=== PATIENT | male | born 1980 | race African-American/Black ===

== ENCOUNTER 2016-11-16 19:11 | Emergency (ER) | payer SELFPAY ==
--- NOTE | 2016-11-16 21:44 | ER Document Report ---
ED Medical Screen (RME) - General Chief Complaint: Abscess Stated Complaint: BUTTOCKS PAIN/POSSIBLE BOIL Notes: 35 yo male with boil to buttocks. noticed it yesterday. started draining today. + previous abscess. no fever. No significant PMHx. - Related Data Allergies/Adverse Reactions: No Known Allergies Allergy (Verified 05/14/12 21:12) Past Medical History Pulmonary Medical History: Reports: Hx Asthma - Immunizations Hx Diphtheria, Pertussis, Tetanus Vaccination: Yes Physical Exam - Vital signs Vitals: Temp Pulse Resp BP Pulse Ox 98.0 F 55 L 16 120/88 H 100 11/16/16 20:17 11/16/16 20:17 11/16/16 20:17 11/16/16 20:17 11/16/16 20:17 Course - Vital Signs Vital signs: Temp Pulse Resp BP Pulse Ox 98.0 F 55 L 16 120/88 H 100 11/16/16 20:17 11/16/16 20:17 11/16/16 20:17 11/16/16 20:17 11/16/16 20:17
--- NOTE | 2016-11-16 23:57 | ER Document Report ---
ED Skin Rash/Insect Bite/Abscs - General Chief Complaint: Abscess Stated Complaint: BUTTOCKS PAIN/POSSIBLE BOIL Mode of Arrival: Ambulatory Information source: Patient Notes: Patient is a 35-year-old male who presents to the ER today for possible abscess on the left buttocks that he noticed 2 days ago. Patient states he has a history of abscesses and has had to get them cut open before, unknown history of MRSA. He states that this one has been draining "a lot of" pus over the past 24 hours. He denies any fevers or chills. - Related Data Allergies/Adverse Reactions: No Known Allergies Allergy (Verified 05/14/12 21:12) Past Medical History - General Information source: Patient - Social History Smoking Status: Unknown if Ever Smoked Family History: Reviewed & Not Pertinent Pulmonary Medical History: Reports: Hx Asthma - Immunizations Hx Diphtheria, Pertussis, Tetanus Vaccination: Yes Review of Systems - Review of Systems Constitutional: No symptoms reported EENT: No symptoms reported Cardiovascular: No symptoms reported Respiratory: No symptoms reported Gastrointestinal: No symptoms reported Genitourinary: No symptoms reported Male Genitourinary: No symptoms reported Musculoskeletal: No symptoms reported Skin: See HPI Hematologic/Lymphatic: No symptoms reported Neurological/Psychological: No symptoms reported Physical Exam - Vital signs Vitals: Temp Pulse Resp BP Pulse Ox 98.0 F 55 L 16 120/88 H 100 11/16/16 20:17 11/16/16 20:17 11/16/16 20:17 11/16/16 20:17 11/16/16 20:17 - Notes Notes: PHYSICAL EXAMINATION: GENERAL: Sleeping, no acute distress. HEAD: Atraumatic, normocephalic. EYES: Pupils equal round and reactive to light, extraocular movements intact, sclera anicteric, conjunctiva are normal. NECK: Normal range of motion, supple without lymphadenopathy LUNGS: CTAB and equal. No wheezes rales or rhonchi. HEART: Regular rate and rhythm without murmurs EXTREMITIES: Normal range of motion, no pitting edema. No cyanosis. NEUROLOGICAL: Cranial nerves grossly intact. Normal sensory/motor exams. PSYCH: Normal mood, normal affect. SKIN: Warm, Dry, normal turgor, left buttock with 2 cm in diameter area of induration, open and draining purulent discharge, tender to palpation, slightly warm to the touch Course - Re-evaluation Re-evalutation: 11/17/16 00:04 Patient opted to try antibiotic as abscess is already open and draining. - Vital Signs Vital signs: Temp Pulse Resp BP Pulse Ox 97.8 F 60 18 118/79 100 11/17/16 00:02 11/17/16 00:02 11/17/16 00:02 11/17/16 00:02 11/17/16 00:02 Discharge - Discharge Clinical Impression: Abscess Condition: Stable Disposition: HOME, SELF-CARE Instructions: Trimethoprim-Sulfa ([facility]) Additional Instructions: Return immediately for any new or worsening symptoms. Follow up with primary care provider, call tomorrow to make followup appointment. Prescriptions: Sulfamethoxazole/Trimethoprim [Bactrim Ds Tablet] 1 each PO BID #20 tablet Forms: Return to Work
[2016-11-17] MEDS ORDERED: SULFAMETHOXAZOLE/TRIMETHOPRIM 800-160 MG TABLET PO ONE (00:01)
[2016-11-17 01:06] VITALS: BP 118/79
== END 2016-11-17 00:02 | disposition home or self-care (01) ==
LOC: ER 19:11
DX: L02.31 Cutaneous abscess of buttock (principal); Z86.14 Personal history of Methicillin resistant Staphylococcus aureus infection
CPT/HCPCS: 99282

== ENCOUNTER 2017-03-15 11:59 | Emergency (ER) | payer SELFPAY ==
[2017-03-15] MEDS ORDERED: ONDANSETRON 4 MG TAB.RAPDIS SL ONE ×2 (12:17→15:37)
[2017-03-15] MEDS ORDERED: LORAZEPAM 1 MG TABLET PO ONE ×2 (12:17→15:37)
--- NOTE | 2017-03-15 12:19 | ER Document Report ---
ED Substance Abuse / Acc. OD - General Chief Complaint: Drug Abuse Stated Complaint: DRUG WITHDRAW SYMPTOMS Time seen by provider: 12:17 Mode of Arrival: Ambulatory Information source: Patient TRAVEL OUTSIDE OF THE U.S. IN LAST 30 DAYS: No - HPI Patient complains to provider of: Drug abuse, Drug withdrawal Onset: Other - 2 days Onset/Duration: Persistent Quality of pain: Achy Severity: Moderate Pain Level: 3 Associated Symptoms: Fever/chills/sweaty, Nausea/vomiting Similar symptoms previously: Yes Recently seen / treated by doctor: No Notes: Patient is a 36-year-old male who presents to the emergency room requesting assistance with withdrawal symptoms related to heroin abuse, states he has been using 8-10 bags daily, snorting it, for the past 6 months, his last use was 2 days ago, he reports nausea, abdominal cramping, diaphoresis and chills as well as diffuse body aches, states he attempt to quit approximate one month ago on his own without any success, denies ever going to a formal rehabilitation/detox program - Related Data Allergies/Adverse Reactions: No Known Allergies Allergy (Verified 03/15/17 12:12) Past Medical History - General Information source: Patient - Social History Smoking Status: Current Every Day Smoker Drug Abuse: Heroin Family History: Reviewed & Not Pertinent Patient has suicidal ideation: No Patient has homicidal ideation: No Pulmonary Medical History: Reports: Hx Asthma Renal/ Medical History: Denies: Hx Peritoneal Dialysis - Immunizations Hx Diphtheria, Pertussis, Tetanus Vaccination: Yes Review of Systems - Review of Systems Constitutional: See HPI EENT: No symptoms reported Cardiovascular: No symptoms reported Respiratory: No symptoms reported Gastrointestinal: See HPI Genitourinary: No symptoms reported Male Genitourinary: No symptoms reported Musculoskeletal: No symptoms reported Skin: No symptoms reported Hematologic/Lymphatic: No symptoms reported Neurological/Psychological: See HPI -: Yes All other systems reviewed and negative Physical Exam - Vital signs Vitals: Temp Pulse Resp BP Pulse Ox 98.2 F 67 18 129/73 H 99 03/15/17 12:12 03/15/17 12:12 03/15/17 12:12 03/15/17 12:12 03/15/17 12:12 Interpretation: Normal - General General appearance: Appears well, Alert - HEENT Head: Normocephalic, Atraumatic Eyes: Normal Pupils: PERRL - Respiratory Respiratory status: No respiratory distress Chest status: Nontender Breath sounds: Normal Chest palpation: Normal - Cardiovascular Rhythm: Regular Heart sounds: Normal auscultation Murmur: No - Abdominal Inspection: Normal Distension: No distension Bowel sounds: Normal Tenderness: Nontender Organomegaly: No organomegaly - Back Back: Normal, Nontender - Extremities General upper extremity: Normal inspection, Nontender, Normal color, Normal ROM , Normal temperature General lower extremity: Normal inspection, Nontender, Normal color, Normal ROM , Normal temperature, Normal weight bearing. No: Alanna's sign - Neurological Neuro grossly intact: Yes Cognition: Normal Orientation: AAOx4 [place] Coma Scale Eye Opening: Spontaneous Diaz Coma Scale Verbal: Oriented Diaz Coma Scale Motor: Obeys Commands [place] Coma Scale Total: 15 Speech: Normal Motor strength normal: LUE, RUE, LLE, RLE Sensory: Normal - Psychological Associated symptoms: Normal affect, Normal mood - Skin Skin Temperature: Warm Skin Moisture: Dry Skin Color: Normal Course - Re-evaluation Re-evalutation: 03/15/17 18:21 Patient was evaluated by mental health screener, who called [facility] who will follow-up with patient to attempt to get him into detox treatment, patient was given a prescription for a small amount of benzodiazepine to help with symptoms of withdrawal, advised to follow-up with [facility], or return if symptoms worsen, patient acknowledges understanding and agreement with this plan - Vital Signs Vital signs: Temp Pulse Resp BP Pulse Ox 98.6 F 54 L 16 110/67 100 03/15/17 16:18 03/15/17 16:18 03/15/17 16:18 03/15/17 16:18 03/15/17 16:18 - Laboratory Result Diagrams: 03/15/17 12:25 03/15/17 12:25 Laboratory results interpreted by me: 03/15/17 12:25 Salicylates < 1.0 L Acetaminophen < 10 L - EKG Interpretation by [facility] EKG shows normal: Sinus rhythm Rate: Bradycardia Discharge - Discharge Clinical Impression: Heroin abuse Condition: Stable Disposition: HOME, SELF-CARE Instructions: Narcotic Abuse ([facility]) Additional Instructions: Return to [facility] for further assistance with detox/rehabilitation treatment. Return to the emergency room immediately if symptoms worsen or any additional concerns. Prescriptions: Lorazepam [Ativan 0.5 mg Tablet] 0.5 mg PO Q4 PRN #14 tab PRN Reason:
[2017-03-15 12:45] LABS: ABSOLUTE BASOPHILS # (AUTO) 0.1 10^3/uL (0.0-0.2); ABSOLUTE EOSINOPHILS # (AUTO) 0.1 10^3/uL (0.0-0.6); ABSOLUTE LYMPHOCYTES (AUTO) 2.1 10^3/uL (0.5-4.7); ABSOLUTE MONOCYTES (AUTO) 0.8 10^3/uL (0.1-1.4); ABSOLUTE NEUT (AUTO) 5.1 10^3/uL (1.7-8.2); BASOPHILS % (AUTO) 0.7 % (0-2); EOSINOPHILS % (AUTO) 0.9 % (0-6); HEMATOCRIT 44.4 % (37.9-51.0); HEMOGLOBIN 15.2 g/dL (13.5-17.0); HGB HCT DIFFERENCE 1.2; LYMPHOCYTES % (AUTO) 26.3 % (13-45); MEAN CORPUSCULAR HEMOGLOBIN 31.3 pg (27.0-33.4); MEAN CORPUSCULAR HGB CONC 34.2 g/dL (32.0-36.0); MEAN CORPUSCULAR VOLUME 92 fl (80-97); MONOCYTES % (AUTO) 9.5 % (3-13); RED BLOOD COUNT 4.85 10^6/uL (4.35-5.55); RED CELL DISTRIBUTION WIDTH 13.5 % (11.5-14.0); SEGMENTED NEUTROPHILS % (AUTO) 62.6 % (42-78); WHITE BLOOD COUNT 8.2 10^3/uL (4.0-10.5)
[2017-03-15 13:03] LABS: APPEARANCE,URINE SLIGHTLY-CLOUDY; BILIRUBIN,URINE NEGATIVE (NEGATIVE); GLUCOSE, URINE NEGATIVE (NEGATIVE); KETONES,URINE NEGATIVE (NEGATIVE); LEUKOCYTE ESTERASE,URINE NEGATIVE (NEGATIVE); NITRITE,URINE NEGATIVE (NEGATIVE); PROTEIN,URINE NEGATIVE (NEGATIVE); URINE SPECIFIC GRAVITY 1.011; UROBILINOGEN,URINE NEGATIVE mg/dL (<2.0)
[2017-03-15 13:04] LABS: ALANINE AMINOTRANSFERASE 41 U/L (21-72); ALBUMIN 4.4 g/dL (3.5-5.0); ALKALINE PHOSPHATASE 83 U/L (38-126); ANION GAP 13 (5-19); ASPARTATE AMINO TRANSFERASE 36 U/L (17-59); BILIRUBIN,DIRECT 0.1 mg/dL (0.0-0.4); BILIRUBIN,TOTAL 0.8 mg/dL (0.2-1.3); BLOOD UREA NITROGEN 11 mg/dL (7-20); CALCIUM 10.2 mg/dL (8.4-10.2); CARBON DIOXIDE 28 mmol/L (22-30); CHLORIDE 103 mmol/L (98-107); CREATININE RESULT 0.96 mg/dL (0.52-1.25); GLUCOSE 104 mg/dL (75-110); POTASSIUM 4.3 mmol/L (3.6-5.0); SODIUM 143.8 mmol/L (137-145); TOTAL PROTEIN 7.8 g/dL (6.3-8.2)
[2017-03-15 13:04] LABS: URINE BARBITURATES SCREEN NEGATIVE; URINE METHADONE SCREEN NEGATIVE; URINE OPIATES LOW UNCONFIRMED POSITIVE; URINE PHENCYCLIDINE SCREEN NEGATIVE
[2017-03-15 13:05] LABS: ALCOHOL < 10 mg/dL (NONE DETECTED)
--- NOTE | 2017-03-15 16:18 | PSYCHOLOGICAL NOTE ---
Psych Note - Psych Note Psych Note: Patient is a 36 year old male who presents with a family member requesting assistance with detox. Patient reportedly used close to 10 bags of heroin/daily and presented to [facility] today requesting assistance seeking a detox bed. Patient states he was instructed to present to the ED and was told the hospital has been known to provide a 4-5 day program. Discussed with patient detox programs, which do not include [facility]. Discussed with patient that [facility] can assist with this, and he can be provided copies of all of his lab work and EKG. Offered to assist patient by calling [facility] to confirm that they do plan to continue to assist him in seeking detox. Patient denied SI/HI. Patient discussed attempting to discontinue heroin abuse without assistance, but was unsuccessful. Patient reportedly uses multiple methods of use. Patient reports he is agreeable to call and follow up. Gina Ovalle: states once the patient has his lab work and EKG, he can call their mobile crisis numbers and will be assisted in finding a detox bed. Patient is A&O. Mood is euthymic with congruent affect. Patient denies suicidal /homicidal ideations, intent, plan, or means. Patient denies A/V H; delusions not noted. Thought processes were organized. Conversational speech was low for prosody. Intellectual abilities were estimated within average range. Attention and focus were fair. Insight, judgment, and impulse control were fair aeb seeking professional assistance. Unspecified Opioid Use Disorder Patient is psychiatrically cleared and recommended for discharge to follow up with [facility] to assist in detox placement. Provided psychoeducation regarding detox processes here in [place], which are largely voluntary. Patient does not meet criteria for IVC as he denies SI/HI and denies abusing drugs with the goal of . Patient was provided a list of community resources to assist him further. I consulted with Dr. Mcghee in regards to the care and management of this patient. ED MD is in agreement with disposition and recommendations.
[2017-03-15 16:23] VITALS: BP 110/67
--- NOTE | 2017-03-15 19:14 | EKG REPORT ---
SEVERITY:- ABNORMAL ECG - SINUS RHYTHM ST ELEVATION NORMAL VARIANT. : Confirmed by: Rom Rowland MD 15-Mar-2017 19:14:02
== END 2017-03-15 16:23 | disposition home or self-care (01) ==
LOC: ER 11:59
DX: F11.10 Opioid abuse, uncomplicated (principal); R10.9 Unspecified abdominal pain; R61 Generalized hyperhidrosis; R68.83 Chills (without fever); R11.2 Nausea with vomiting, unspecified; R00.1 Bradycardia, unspecified; F17.200 Nicotine dependence, unspecified, uncomplicated; J45.909 Unspecified asthma, uncomplicated
CPT/HCPCS: 93005; 99285; 36415; 80307 ×4; 85025; 80053; 81001; 93010; S0119

== ENCOUNTER 2017-03-18 10:00 | Emergency (ER) | payer SELFPAY ==
--- NOTE | 2017-03-18 10:30 | ER Document Report ---
HPI - HPI Patient complains to provider of: punched a wall Onset: Yesterday Onset/Duration: Sudden Quality of pain: Throbbing Pain Level: 4 Context: 36-year-old male punched a wall yesterday and is complaining of pain in the right lateral aspect of the hand over the fifth MCP joint. No previous fracture. Associated Symptoms: None Exacerbated by: Movement Relieved by: Denies Similar symptoms previously: No Recently seen / treated by doctor: No - ROS ROS below otherwise negative: Yes Systems Reviewed and Negative: Yes All other systems reviewed and negative - DERM Skin Color: Normal Past Medical History - General Information source: Patient - Social History Smoking Status: Current Every Day Smoker Frequency of alcohol use: Heavy Drug Abuse: None Lives with: Family Family History: Reviewed & Not Pertinent Patient has suicidal ideation: No Patient has homicidal ideation: No Pulmonary Medical History: Reports: Hx Asthma Renal/ Medical History: Denies: Hx Peritoneal Dialysis Surgical Hx: Negative - Immunizations Hx Diphtheria, Pertussis, Tetanus Vaccination: Yes Vertical Provider Document - CONSTITUTIONAL Agree With Documented VS: Yes Exam Limitations: No Limitations - INFECTION CONTROL TRAVEL OUTSIDE OF THE U.S. IN LAST 30 DAYS: No - HEENT HEENT: Normocephalic - NECK Neck: Supple - RESPIRATORY O2 Sat by Pulse Oximetry: 98 - MUSCULOSKELETAL/EXTREMETIES Musculoskeletal/Extremeties: MAEW, FROM, Tender, Edema, Eccymosis - Fifth right MCP joint - NEURO Level of Consciousness: Awake, Alert, Appropriate Motor/Sensory: No Motor Deficit, No Sensory Deficit Notes: No rotational deviation - DERM Integumentary: Warm, Dry, No Rash Course - Re-evaluation Re-evalutation: 03/18/17 10:33 Patient does not want any Motrin offered further pain - Vital Signs Vital signs: Temp Pulse Resp BP Pulse Ox 98.5 F 83 18 126/72 H 98 03/18/17 10:06 03/18/17 10:06 03/18/17 10:06 03/18/17 10:06 03/18/17 10:06 Procedures - Immobilization Right Arm Time completed: 10:57 Pre-Proc Neuro Vasc Exam: Normal Immobilizer type: Ulnar Performed by: PCT Post-Proc Neuro Vasc Exam: Normal Alignment checked and good: Yes Discharge - Discharge Clinical Impression: distal right fifth metacarpal fracture Condition: Good Disposition: HOME, SELF-CARE Instructions: Fractured Fifth Metacarpal ([facility]), Temporary Sling ([facility]), Splint Precautions ([facility]), Splint Pending Casting ([facility]) Additional Instructions: See the orthopedic doctor next week call Monday for appointment Return to the emergency room any concerns Please complete the patient satisfaction survey if you get one, and return it.. If you do not receive a survey, then you can go to the [facility] website, [email or web address] and place your comments about your very good care. Thank you very much. It was a pleasure being your medical provider today. Forms: Return to Work Referrals: FUENTES CAMPOS MD [ACTIVE STAFF] - 03/20/17
[2017-03-18 11:24] VITALS: BP 118/72
== END 2017-03-18 11:24 | disposition home or self-care (01) ==
LOC: ER 10:00
PROC: 2W3CX1Z Immobilization of Right Lower Arm using Splint (ICD-10-PCS; principal; 2017-03-18)
DX: S62.396A Other fracture of fifth metacarpal bone, right hand, initial encounter for closed fracture (principal); W22.01XA Walked into wall, initial encounter; F17.200 Nicotine dependence, unspecified, uncomplicated; J45.909 Unspecified asthma, uncomplicated
CPT/HCPCS: 99283

== ENCOUNTER 2018-03-13 00:19 | Inpatient (IN) | payer SELFPAY ==
[2018-03-13] MEDS ORDERED: CLINDAMYCIN 600 MG/D5W RTU 600 MG/50 ML RTUPB IV ONE (01:02)
[2018-03-13] MEDS ORDERED: KETOROLAC TROMETHAMINE INJ/PF 30 MG/1 ML SDV IV ONE (01:02)
--- NOTE | 2018-03-13 01:05 | ER Document Report ---
ED Medical Screen (RME) - General Chief Complaint: Arm Problem Stated Complaint: ARM SWELLING Time Seen by Provider: 03/13/18 01:01 Mode of Arrival: Ambulatory Information source: Patient TRAVEL OUTSIDE OF THE [place] IN LAST 30 DAYS: No - HPI Patient complains to provider of: Right hand swelling Notes: 03/13/18 01:03 Patient is here with complaints of right hand swelling, redness, pain. States this is been present for about 2 days now. He does report that he shot heroin into his hand 1 day prior to this. Since that time he had progressively worsening redness and swelling with pain to the right hand wrist midforearm. He denies any numbness or tingling. He has decreased range of motion of the wrist and hand secondary to pain and swelling. He denies fever. He denies known HIV, diabetes or immunosuppression. No fevers. Physical exam: No acute distress. Redness and swelling to the right hand and wrist. This area is warm to the touch. Tenderness to palpation. Normal pulse. Limited range of motion of the wrist and hand. Normal cap refill and sensation distally. Compartments soft. Plan: CBC, CMP, sed rate, CRP, blood cultures, IV, Toradol, clindamycin, x-ray of the hand. An initial examination was made on the patient as part of the triage process, and it was determined a more comprehensive evaluation was necessary. Initial labs were ordered and patient was transferred to another provider in the ED who assumed care and finished evaluation and plan. - Related Data Allergies/Adverse Reactions: No Known Allergies Allergy (Verified 03/18/17 10:32) Past Medical History Pulmonary Medical History: Reports: Hx Asthma Renal/ Medical History: Denies: Hx Peritoneal Dialysis - Immunizations Hx Diphtheria, Pertussis, Tetanus Vaccination: Yes Physical Exam - Vital signs Vitals: Temp Pulse Resp BP Pulse Ox 99.6 F 75 20 128/77 H 98 03/13/18 00:26 03/13/18 00:26 03/13/18 00:26 03/13/18 00:03/13/18 00:26 Course - Vital Signs Vital signs: Temp Pulse Resp BP Pulse Ox 99.6 F 75 20 128/77 H 98 03/13/18 00:26 03/13/18 00:26 03/13/18 00:26 03/13/18 00:26 03/13/18 00:26
[2018-03-13] MEDS ORDERED: VANCOMYCIN HCL INJ 1000 MG VIAL IV ONE (02:21)
--- NOTE | 2018-03-13 02:35 | RADIOLOGY REPORT (SQ) ---
EXAM DESCRIPTION: HAND RIGHT 3 VIEWS CLINICAL HISTORY: IVD USE. HAND INJECTION. SWELLING/RED/PAIN COMPARISON: None. FINDINGS: 3 views of the right hand. Remote fifth metacarpal fracture. No acute fracture identified. Edema of the hyperthenar eminence. IMPRESSION: 1. No acute fracture.
[2018-03-13 02:55] LABS: ABSOLUTE BASOPHILS # (AUTO) 0.1 10^3/uL (0.0-0.2); ABSOLUTE EOSINOPHILS # (AUTO) 0.1 10^3/uL (0.0-0.6); ABSOLUTE LYMPHOCYTES (AUTO) 2.4 10^3/uL (0.5-4.7); ABSOLUTE MONOCYTES (AUTO) 1.9 10^3/uL (0.1-1.4); ABSOLUTE NEUT (AUTO) 12.2 10^3/uL (1.7-8.2); BASOPHILS % (AUTO) 0.6 % (0-2); EOSINOPHILS % (AUTO) 0.4 % (0-6); HEMATOCRIT 41.4 % (37.9-51.0); HEMOGLOBIN 13.5 g/dL (13.5-17.0); LYMPHOCYTES % (AUTO) 14.5 % (13-45); MEAN CORPUSCULAR HEMOGLOBIN 30.4 pg (27.0-33.4); MEAN CORPUSCULAR HGB CONC 32.7 g/dL (32.0-36.0); MEAN CORPUSCULAR VOLUME 93 fl (80-97); MONOCYTES % (AUTO) 11.4 % (3-13); PLATELET COUNT 398 10^3/uL (150-450); RED BLOOD COUNT 4.45 10^6/uL (4.35-5.55); RED CELL DISTRIBUTION WIDTH 13.5 % (11.5-14.0); SEGMENTED NEUTROPHILS % (AUTO) 73.1 % (42-78); TOTAL CELLS COUNTED % (AUTO) 100 %; WHITE BLOOD COUNT 16.7 10^3/uL (4.0-10.5)
[2018-03-13 03:30] LABS: ERYTHROCYTE SEDIMENTATION RATE 65 mm/hr (0-15)
[2018-03-13 03:59] LABS: ALANINE AMINOTRANSFERASE 94 U/L (21-72); ALBUMIN 3.7 g/dL (3.5-5.0); ALKALINE PHOSPHATASE 127 U/L (38-126); ANION GAP 13 (5-19); ASPARTATE AMINO TRANSFERASE 82 U/L (17-59); BILIRUBIN,DIRECT 0.3 mg/dL (0.0-0.4); BILIRUBIN,TOTAL 0.4 mg/dL (0.2-1.3); BLOOD UREA NITROGEN 7 mg/dL (7-20); C-REACTIVE PROTEIN 85.9 mg/L (<10.0); CALCIUM 9.6 mg/dL (8.4-10.2); CARBON DIOXIDE 26 mmol/L (22-30); CHLORIDE 106 mmol/L (98-107); GLUCOSE 114 mg/dL (75-110); POTASSIUM 3.9 mmol/L (3.6-5.0); SODIUM 144.9 mmol/L (137-145); TOTAL PROTEIN 7.1 g/dL (6.3-8.2)
--- NOTE | 2018-03-13 04:41 | ER Document Report ---
ED Extremity Problem, Upper - General Mode of Arrival: Ambulatory TRAVEL OUTSIDE OF THE U.S. IN LAST 30 DAYS: No <MARCAI FONSECA - Last Filed: 03/13/18 05:16> <JONAH PAIGE - Last Filed: 03/13/18 05:36> - General Chief Complaint: Arm Problem Stated Complaint: ARM SWELLING Time Seen by Provider: 03/13/18 01:01 Notes: Patient is a 37-year-old male who presents to the emergency department with complaint of right hand swelling and pain x2 days. Patient reports that 3 days ago he was shooting up heroin. Patient states he is right-hand dominant. Patient states that the hand is painful, from the fingers of into the wrist and has limited range of motion. Patient denies any past medical history or surgical history. Patient reports that he uses heroin and cocaine. (MARCIA FONSECA) - Related Data Allergies/Adverse Reactions: No Known Allergies Allergy (Verified 03/18/17 10:32) Past Medical History - General Information source: Patient - Social History Smoking Status: Current Every Day Smoker Frequency of alcohol use: Occasional Drug Abuse: Cocaine, Heroin Family History: Reviewed & Not Pertinent Patient has suicidal ideation: No Patient has homicidal ideation: No Pulmonary Medical History: Reports: Hx Asthma Renal/ Medical History: Denies: Hx Peritoneal Dialysis Past Surgical History: Reports: None - Immunizations Hx Diphtheria, Pertussis, Tetanus Vaccination: Yes <MARCIA FONSECA - Last Filed: 03/13/18 05:16> Review of Systems - Review of Systems Constitutional: No symptoms reported EENT: No symptoms reported Cardiovascular: No symptoms reported Respiratory: No symptoms reported Gastrointestinal: No symptoms reported Genitourinary: No symptoms reported Male Genitourinary: No symptoms reported Musculoskeletal: See HPI Skin: See HPI Hematologic/Lymphatic: No symptoms reported Neurological/Psychological: No symptoms reported <MARCIA FONSECA - Last Filed: 03/13/18 05:16> Physical Exam <MARCIA FONSECA - Last Filed: 03/13/18 05:16> <JONAH PAIGE - Last Filed: 03/13/18 05:36> - Vital signs Vitals: Temp Pulse Resp BP Pulse Ox 99.6 F 75 20 128/77 H 98 03/13/18 00:26 03/13/18 00:26 03/13/18 00:26 03/13/18 00:26 03/13/18 00:26 - Notes Notes: PHYSICAL EXAMINATION: GENERAL: Well-appearing, well-nourished and in no acute distress. HEAD: Atraumatic, normocephalic. EYES: Pupils equal round and reactive to light, extraocular movements intact, conjunctiva are normal. ENT: Nares patent. Moist mucous membranes. NECK: Normal range of motion, supple without lymphadenopathy LUNGS: Breath sounds clear to auscultation bilaterally and equal. No wheezes rales or rhonchi. HEART: Regular rate and rhythm without murmurs ABDOMEN: Soft, nontender, nondistended abdomen. No guarding, no rebound. No masses appreciated. Musculoskeletal: Normal range of motion, no pitting or edema. No cyanosis. NEUROLOGICAL: Cranial nerves grossly intact. Normal speech, normal gait. Normal sensory, motor exams PSYCH: Normal mood, normal affect. SKIN: Erythema warmth and swelling to right hand from fingertips into wrist. Limited ROM. Radial pulse present. (MARCIA FONSECA) Course - Laboratory Result Diagrams: 03/13/18 02:30 03/13/18 03:14 <MARCIA FONSECA - Last Filed: 03/13/18 05:16> - Laboratory Result Diagrams: 03/13/18 02:30 03/13/18 03:14 <JONAH PAIGE - Last Filed: 03/13/18 05:36> - Re-evaluation Re-evalutation: Patient's right hand is erythematous, warm to touch, and swollen from tips of his digits into his wrist. Pulses are present. There is a significant limitation of patient's range of motion. Patient does have sensation distal to injection sites. Patient reports that there is at least 3 injection sites to the dorsal surface of his hand. Patient has elevated WBC 16.7, ESR 65 and c- reactive protein 85.9. X-ray shows no foreign body. Will start patient on vancomycin, pain medication and nausea medication. Patient is afebrile and is not tachycardic. Consulted emergency attending, Dr. Paige, who agrees that patient needs to be admitted. 03/13/18 04:[address] Birmingham, orthopedic carton forming machine adjuster. by requesting medicine to evaluate patient and admit and he will consult if surgical intervention is necessary. 03/13/2018 04:[address] Evans, hospitalist. Dr. Evans states that he is concerned about this patient experiencing complications, and states that he will not admit without orthopedics evaluating patient. 03/13/2018 04:[address] Birminghma, orthopedic on-call who states that he is not admitting patient unless there is an proof of an abscess that needs surgical intervention. 03/13/2018 04:45 Spoke with emergency room attending, Dr. Paige who advises that a call she will be placed to the field administrator on-call at this point. (MARCIA FONSECA) 03/13/18 05:34 I reevaluated this patient as well. Patient is a large amount of swelling to the dorsum of the hand consistent with a serious hand infection which could potentially be an abscess as well. Patient's posterior hand is tight to touch but not rockhard. He is not yet compartment syndrome. Hand compartment syndromes are rare but can occur. He is not yet at that point. Marcia Fonseca, nurse practitioner, has been attempting to the patient admitted. I myself have now spoken with Dr. Birmingham informed him of our concerns Dr. Birmingham no agrees to come see the patient. Dictation of this chart was performed using voice recognition software; therefore, there may be some unintended grammatical errors. (JONAH PAIGE) - Vital Signs Vital signs: Temp Pulse Resp BP Pulse Ox 99.6 F 75 20 128/77 H 98 03/13/18 00:26 03/13/18 00:26 03/13/18 00:26 03/13/18 00:26 03/13/18 00:26 - Laboratory Laboratory results interpreted by me: 03/13/18 03/13/18 02:30 03:14 WBC 16.7 H Absolute Neutrophils 12.2 H Absolute Monocytes 1.9 H ESR 65 H Glucose 114 H AST 82 H ALT 94 H Alkaline Phosphatase 127 H C-Reactive Protein 85.9 H
[2018-03-13] MEDS ORDERED: HYDROMORPHONE HCL INJ/PF 2 MG/ML AMPULE IV ONE (05:04)
--- NOTE | 2018-03-13 07:11 | PDOC CONSULTATION ---
Consultation Consult Date: 03/13/18 Consult reason:: Right hand cellulitis History of Present Illness Patient complains of: Right hand swelling and pain History of Present Illness: ENRIQUETA GREY is a 37 year old male -[place] male who 2 days ago was admits to doing IV drugs. Patient states he started developing swelling and pain and came to ER for regulation. Denies any numbness or tingling or paresthesias. Denies any fevers or chills or other complaints. Complains of hand and thumb swelling. Has 2 visible breaks in the wrist and base of the thumb. Denies any prior surgical procedures to the right hand or thumb. Denies any previous injury. Past Medical History Pulmonary Medical History: Reports: Asthma Past Surgical History Past Surgical History: Reports: None Social History Smoking Status: Current Every Day Smoker Family History Family History: Reviewed & Not Pertinent Parental Family History Reviewed: No Children Family History Reviewed: No Sibling(s) Family History Reviewed.: No Medication/Allergy Home Medications: No Home Medications 1 05/14/12 Hydrocodone Bit/Acetaminophen [Vicodin 5-500 mg Tablet] 1 - 2 tab PO ASDIR PRN # 15 tablet 06/22/12 Sulfamethoxazole/Trimethoprim [Bactrim Ds Tablet] 1 each PO BID #20 tablet 11/17 Lorazepam [Ativan 0.5 mg Tablet] 0.5 mg PO Q4 PRN #14 tab 03/15/17 Allergies/Adverse Reactions: No Known Allergies Allergy (Verified 03/18/17 10:32) Review of Systems All systems: reviewed and no additional remarkable complaints except as stated Physical Exam Vital Signs: Temp Pulse Resp BP Pulse Ox 37.2 C 63 16 112/70 99 03/13/18 05:40 03/13/18 05:40 03/13/18 05:40 03/13/18 05:40 03/13/18 05:40 Intake & Output 03/11/18 03/12/18 03/13/18 06:59 06:59 06:59 Weight 89.8 kg General appearance: PRESENT: no acute distress Head exam: PRESENT: atraumatic Eye exam: PRESENT: EOMI Respiratory exam: PRESENT: symmetrical, unlabored. ABSENT: accessory muscle use , tachypnea Pulses: PRESENT: normal radial pulses Vascular exam: PRESENT: normal capillary refill Front of Hands Image: 1 - Thenar swelling and erythema as well as base of the thumb swelling and erythema. Distal to the IP joint patient has no swelling and good capillary refill and able to flex and extend the IP joint. There is no pinpoint tenderness just global tenderness of the thenar and dorsal aspect of the base of the thumb. No fluctuance palpated. No streaking lymphangitis. Able to flex and extend all 5 digits at the MCP PIP and DIP joints. Most of the pain is with the thumb with extension. And tenderness over the puncture site from the IV drug use. Neurological exam: PRESENT: alert, awake, oriented to person, oriented to place , oriented to time, oriented to situation Results Laboratory Results: 03/13/18 02:30 03/13/18 03:14 03/13/18 03/13/18 03/13/18 02:30 02:30 03:14 WBC 16.7 H RBC 4.45 Hgb 13.5 Hct 41.4 MCV 93 MCH 30.4 MCHC 32.7 RDW 13.5 Plt Count 398 Seg Neutrophils % 73.1 Lymphocytes % 14.5 Monocytes % 11.4 Eosinophils % 0.4 Basophils % 0.6 Absolute Neutrophils 12.2 H Absolute Lymphocytes 2.4 Absolute Monocytes 1.9 H Absolute Eosinophils 0.1 Absolute Basophils 0.1 Sodium Cancelled 144.9 Potassium Cancelled 3.9 Chloride Cancelled 106 Carbon Dioxide Cancelled 26 Anion Gap Cancelled 13 BUN Cancelled 7 Creatinine Cancelled 1.03 Est GFR ( Amer) Cancelled > 60 Est GFR (Non-Af Amer) Cancelled > 60 Glucose Cancelled 114 H Calcium Cancelled 9.6 Total Bilirubin Cancelled 0.4 AST Cancelled 82 H ALT Cancelled 94 H Alkaline Phosphatase Cancelled 127 H C-Reactive Protein Cancelled 85.9 H Total Protein Cancelled 7.1 Albumin Cancelled 3.7 Impressions: Hand X-Ray 03/13/18 01:02 IMPRESSION: 1. No acute fracture.
[2018-03-13] MEDS ORDERED: IPRATROPIUM/ALBUTEROL 0.5-2.5 MG/3 ML AMPUL NEB PRN (07:26)
[2018-03-13] MEDS ORDERED: ONDANSETRON HCL INJ/PF 4 MG/2 ML SDV IV PRN (07:26)
[2018-03-13] MEDS ORDERED: HYDRALAZINE HCL INJ/PF 20 MG/1 ML SDV IV PRN (07:26)
[2018-03-13] MEDS ORDERED: MAGNESIUM HYDROXIDE SUSP 30 ML UDCUP PO PRN (07:26)
[2018-03-13] MEDS ORDERED: MAG HYDROX/AL HYDROX/SIMETH SUSP 30 ML UDCUP PO PRN (07:26)
[2018-03-13] MEDS ORDERED: ACETAMINOPHEN 325 MG TABLET PO PRN (07:26)
[2018-03-13] MEDS ORDERED: VANCOMYCIN HCL 0 MG in DEXTROSE 5%-WATER 250 ML IV NR (07:30)
--- NOTE | 2018-03-13 07:37 | PDOC H&P ---
History of Present Illness Patient complains of: Right hand pain and swelling History of Present Illness: ENRIQUETA GREY is a 37 year old male with a history of polysubstance IV drug abuse. 48 hours of right hand pain and swelling following IV drug use in the region. Patient denies previous episode, chest pain palpitations shortness of breath. In the emergency room is found to have leukocytosis marketed swelling of the hand increased pain with clenching of the first, no lymphangitic spread. He is evaluated by orthopedic surgery, receives IV clindamycin and vancomycin. He is referred to the hospitalist for admission. Past Medical History Pulmonary Medical History: Reports: Asthma Psychiatric Medical History: Reports: Substance Abuse Past Surgical History Past Surgical History: Reports: None Social History Information Source: Patient Smoking Status: Current Every Day Smoker Hx Recreational Drug Use: Yes Drugs: Cocaine, Heroin - Advance Directive Resuscitation Status: Full Code Family History Family History: COPD Parental Family History Reviewed: Yes Children Family History Reviewed: Yes Sibling(s) Family History Reviewed.: Yes Medication/Allergy Home Medications: No Home Medications 1 05/14/12 Hydrocodone Bit/Acetaminophen [Vicodin 5-500 mg Tablet] 1 - 2 tab PO ASDIR PRN # 15 tablet 06/22/12 Sulfamethoxazole/Trimethoprim [Bactrim Ds Tablet] 1 each PO BID #20 tablet 11/17 Lorazepam [Ativan 0.5 mg Tablet] 0.5 mg PO Q4 PRN #14 tab 03/15/17 Allergies/Adverse Reactions: No Known Allergies Allergy (Verified 03/18/17 10:32) Review of Systems Constitutional: ABSENT: chills, fever(s), headache(s), weight gain, weight loss Eyes: ABSENT: visual disturbances Ears: ABSENT: hearing changes Cardiovascular: ABSENT: chest pain, dyspnea on exertion, edema, orthropnea, palpitations Respiratory: ABSENT: cough, hemoptysis Gastrointestinal: ABSENT: abdominal pain, constipation, diarrhea, hematemesis, hematochezia, nausea, vomiting Genitourinary: ABSENT: dysuria, hematuria Musculoskeletal: ABSENT: joint swelling Integumentary: ABSENT: rash, wounds Neurological: ABSENT: abnormal gait, abnormal speech, confusion, dizziness, focal weakness, syncope Psychiatric: ABSENT: anxiety, depression, homidical ideation, suicidal ideation Endocrine: ABSENT: cold intolerance, heat intolerance, polydipsia, polyuria Hematologic/Lymphatic: ABSENT: easy bleeding, easy bruising Physical Exam Vital Signs: Temp Pulse Resp BP Pulse Ox 98.9 F 63 16 112/70 99 03/13/18 05:40 03/13/18 05:40 03/13/18 05:40 03/13/18 05:40 03/13/18 05:40 Intake & Output 03/11/18 03/12/18 03/13/18 11:59 11:59 11:59 Weight 89.8 kg General appearance: PRESENT: cooperative, disheveled, mild distress, well- developed, well-nourished Head exam: PRESENT: atraumatic, normocephalic Eye exam: PRESENT: conjunctiva pink, EOMI, PERRLA. ABSENT: scleral icterus Ear exam: PRESENT: normal external ear exam Mouth exam: PRESENT: moist, tongue midline Neck exam: ABSENT: carotid bruit, JVD, lymphadenopathy, thyromegaly Respiratory exam: PRESENT: clear to auscultation marian. ABSENT: rales, rhonchi, wheezes Cardiovascular exam: PRESENT: RRR. ABSENT: diastolic murmur, rubs, systolic murmur Pulses: PRESENT: normal dorsalis pedis pul Vascular exam: PRESENT: normal capillary refill GI/Abdominal exam: PRESENT: normal bowel sounds, soft. ABSENT: distended, guarding, mass, organolmegaly, rebound, tenderness Rectal exam: PRESENT: deferred Extremities exam: PRESENT: full ROM, other - Right hand edema erythema and pain , no fluctuance or open lesion. ABSENT: calf tenderness, clubbing, pedal edema Neurological exam: PRESENT: alert, awake, oriented to person, oriented to place , oriented to time, oriented to situation, CN II-XII grossly intact. ABSENT: motor sensory deficit Psychiatric exam: PRESENT: appropriate affect, normal mood. ABSENT: homicidal ideation, suicidal ideation Skin exam: PRESENT: dry, intact, warm. ABSENT: cyanosis, rash Results Laboratory Results: 03/13/18 02:30 03/13/18 03:14 03/13/18 03/13/18 03/13/18 02:30 02:30 03:14 WBC 16.7 H RBC 4.45 Hgb 13.5 Hct 41.4 MCV 93 MCH 30.4 MCHC 32.7 RDW 13.5 Plt Count 398 Seg Neutrophils % 73.1 Lymphocytes % 14.5 Monocytes % 11.4 Eosinophils % 0.4 Basophils % 0.6 Absolute Neutrophils 12.2 H Absolute Lymphocytes 2.4 Absolute Monocytes 1.9 H Absolute Eosinophils 0.1 Absolute Basophils 0.1 Sodium Cancelled 144.9 Potassium Cancelled 3.9 Chloride Cancelled 106 Carbon Dioxide Cancelled 26 Anion Gap Cancelled 13 BUN Cancelled 7 Creatinine Cancelled 1.03 Est GFR ( Amer) Cancelled > 60 Est GFR (Non-Af Amer) Cancelled > 60 Glucose Cancelled 114 H Calcium Cancelled 9.6 Total Bilirubin Cancelled 0.4 AST Cancelled 82 H ALT Cancelled 94 H Alkaline Phosphatase Cancelled 127 H C-Reactive Protein Cancelled 85.9 H Total Protein Cancelled 7.1 Albumin Cancelled 3.7 Impressions: Hand X-Ray 03/13/18 01:02 IMPRESSION: 1. No acute fracture. Assessment & Plan - Diagnosis (1) Cellulitis of hand, right Is this a current diagnosis for this admission?: Yes Plan: Mid floor admission, elevation, symptomatic management IV vancomycin orthopedic consultation as needed, follow-up CBC and blood culture (2) Polysubstance abuse Is this a current diagnosis for this admission?: Yes Plan: Monitor for withdrawal, low-dose opiates as needed (3) Pain Is this a current diagnosis for this admission?: Yes Plan: Tylenol, Toradol and Percocet for breakthrough pain. - Time Time Spent: 30 to 50 Minutes - Inpatient Certification Medical Necessity: Need Close Monitoring Due to Risk of Patient Decompensation
[2018-03-13] MEDS ORDERED: NICOTINE 14 MG/24 HR PATCH.TD24 TD ONE (08:00)
[2018-03-13] MEDS: KETOROLAC TROMETHAMINE INJ/PF 30 MG/1 ML SDV IV PRN ×2 (08:03→16:01)
[2018-03-13] MEDS ORDERED: HEPARIN SOD (PORCINE) 5,000 UNIT/ML 1 ML SYRINGE SUBCUT ONE (08:15)
[2018-03-13] MEDS: DOCUSATE SODIUM 100 MG CAPSULE PO SCH ×2 (09:34→17:43)
[2018-03-13] MEDS: NORMAL SALINE 1000 ML 1,000 ML IV SCH ×3 (09:36→15:44)
[2018-03-13] MEDS: VANCOMYCIN HCL 1,000 MG in DEXTROSE 5%-WATER 250 ML IV SCH ×2 (09:40→17:43)
[2018-03-13] MEDS: OXYCODONE-ACETAMINOPHEN 5-325 MG TABLET PO PRN ×2 (10:42→19:29)
[2018-03-13] MEDS: HEPARIN SOD (PORCINE) 5,000 UNIT/ML 1 ML SYRINGE SUBCUT SCH ×2 (13:40→21:28)
--- NOTE | 2018-03-13 16:52 | Progress Note ---
Provider Note Provider Note: Agree with baker plan of care: 1. Cellulitis of R hand: Ortho consulted, they state the patient should be managed medically (not surgically). Limited ROM of right wrist and all 5 digits , particularly R thumb. +TTP. Elevated WBC 16.7, ESR 65 and c-reactive protein 85.9. X-ray shows no foreign body. Afebrile. Initially treated with vancomycin IV and clindamycin IV in emergency department, continue IV vancomycin. Elevate right upper extremity. Blood cultures pending. 2. Polysubstance abuse: Patient endorses a history of polysubstance IV drug abuse. Monitor for withdrawal symptoms. 3. Pain: As needed Tylenol, Toradol, and/or Percocet for breakthrough pain
[2018-03-14] MEDS: VANCOMYCIN HCL 1,000 MG in DEXTROSE 5%-WATER 250 ML IV SCH ×3 (01:24→16:49)
[2018-03-14] MEDS: KETOROLAC TROMETHAMINE INJ/PF 30 MG/1 ML SDV IV PRN ×3 (01:33→16:48)
[2018-03-14 05:09] LABS: ABSOLUTE BASOPHILS # (AUTO) 0.1 10^3/uL (0.0-0.2); ABSOLUTE EOSINOPHILS # (AUTO) 0.2 10^3/uL (0.0-0.6); ABSOLUTE LYMPHOCYTES (AUTO) 2.9 10^3/uL (0.5-4.7); ABSOLUTE MONOCYTES (AUTO) 1.1 10^3/uL (0.1-1.4); ABSOLUTE NEUT (AUTO) 6.5 10^3/uL (1.7-8.2); BASOPHILS % (AUTO) 0.9 % (0-2); EOSINOPHILS % (AUTO) 1.8 % (0-6); HEMATOCRIT 36.5 % (37.9-51.0); LYMPHOCYTES % (AUTO) 26.7 % (13-45); MEAN CORPUSCULAR HEMOGLOBIN 30.6 pg (27.0-33.4); MEAN CORPUSCULAR HGB CONC 32.8 g/dL (32.0-36.0); MEAN CORPUSCULAR VOLUME 94 fl (80-97); MONOCYTES % (AUTO) 10.1 % (3-13); PLATELET COUNT 334 10^3/uL (150-450); RED CELL DISTRIBUTION WIDTH 13.2 % (11.5-14.0); SEGMENTED NEUTROPHILS % (AUTO) 60.5 % (42-78); TOTAL CELLS COUNTED % (AUTO) 100 %; WHITE BLOOD COUNT 10.8 10^3/uL (4.0-10.5)
[2018-03-14 05:28] LABS: ANION GAP 14 (5-19); BLOOD UREA NITROGEN 12 mg/dL (7-20); CALCIUM 9.1 mg/dL (8.4-10.2); CARBON DIOXIDE 23 mmol/L (22-30); CHLORIDE 108 mmol/L (98-107); GLUCOSE 128 mg/dL (75-110); SODIUM 145.4 mmol/L (137-145)
[2018-03-14] MEDS: HEPARIN SOD (PORCINE) 5,000 UNIT/ML 1 ML SYRINGE SUBCUT SCH ×3 (06:45→21:49)
[2018-03-14] MEDS: DOCUSATE SODIUM 100 MG CAPSULE PO SCH ×2 (10:32→16:51)
[2018-03-14 10:51] LABS: VANCOMYCIN,TROUGH 10.5 ug/mL (5.0-20.0)
--- NOTE | 2018-03-14 16:44 | PDOC PROGRESS REPORT ---
Subjective Progress Note for:: 03/14/18 Subjective:: ENRIQUETA GREY is a 37-year-old male who presents with right hand pain and swelling. The patient has a known history of IVDU and admits to shooting up heroin in the dorsal aspect of his right hand. Evaluated by orthopedic surgery , no surgical intervention at this time only medical management. The patient was seen this morning on rounds, he endorses pain to the right hand and wrist. He still has a degree of swelling to the dorsal aspect of the right hand and is unable to extend all 5 fingers without significant pain. Additionally the patient is unable to flex and extend the right wrist without significant pain. The right thumb, palm, and wrist are all tender to palpation. No erythema. Reason For Visit: RIGHT HAND CELLULITS POLYSUBSTANCE ABUSE Physical Exam Vital Signs: Temp Pulse Resp BP Pulse Ox 98.8 F 71 14 138/73 H 99 03/14/18 07:32 03/14/18 08:00 03/14/18 08:00 03/14/18 07:32 03/14/18 08:00 Intake & Output 03/13/18 03/14/18 03/15/18 06:59 06:59 06:59 Intake Total 3310 575 Balance 3310 575 Weight 91.1 kg General appearance: PRESENT: no acute distress Head exam: PRESENT: atraumatic Eye exam: PRESENT: conjunctiva pink Mouth exam: PRESENT: moist Neck exam: PRESENT: full ROM Respiratory exam: PRESENT: clear to auscultation marian, symmetrical, unlabored Cardiovascular exam: PRESENT: +S1, +S2. ABSENT: systolic murmur Pulses: PRESENT: normal radial pulses Vascular exam: PRESENT: normal capillary refill GI/Abdominal exam: PRESENT: normal bowel sounds, soft. ABSENT: tenderness Rectal exam: PRESENT: deferred Extremities exam: PRESENT: full ROM Musculoskeletal exam: PRESENT: ambulatory, full ROM Neurological exam: PRESENT: alert, awake, oriented to person, oriented to place , oriented to time, oriented to situation Psychiatric exam: PRESENT: appropriate affect Skin exam: PRESENT: dry, intact, normal color Results Laboratory Results: 03/14/18 04:14 03/14/18 04:14 03/14/18 03/14/18 04:14 04:14 WBC 10.8 H RBC 3.90 L Hgb 12.0 L Hct 36.5 L MCV 94 MCH 30.6 MCHC 32.8 RDW 13.2 Plt Count 334 Seg Neutrophils % 60.5 Lymphocytes % 26.7 Monocytes % 10.1 Eosinophils % 1.8 Basophils % 0.9 Absolute Neutrophils 6.5 Absolute Lymphocytes 2.9 Absolute Monocytes 1.1 Absolute Eosinophils 0.2 Absolute Basophils 0.1 Sodium 145.4 H Potassium 4.0 Chloride 108 H Carbon Dioxide 23 Anion Gap 14 BUN 12 Creatinine 1.07 Est GFR ( Amer) > 60 Est GFR (Non-Af Amer) > 60 Glucose 128 H Calcium 9.1 Impressions: Hand X-Ray 03/13/18 01:02 IMPRESSION: 1. No acute fracture. Status: Imported from PACS Assessment & Plan - Diagnosis (1) Cellulitis of hand, right Is this a current diagnosis for this admission?: Yes Plan: Cellulitis of the right hand secondary to staph vs. strep infection stemming from IV drug abuse. Significant swelling to the right thumb and dorsal aspect of the right hand. + TTP Continue IV vancomycin. Patient is afebrile, leukocytosis resolved. Blood cultures no growth to date. Orthopedic surgery was consulted upon the patient's admission, there is no surgical intervention that is warranted at this time. Medical management only. (2) Pain Is this a current diagnosis for this admission?: Yes Plan: The patient complains of a significant amount of pain associated with movement of the right hand. Tylenol, Toradol, Percocet for breakthrough pain. (3) Polysubstance abuse Is this a current diagnosis for this admission?: Yes Plan: The patient endorses a history of cocaine and heroin use. The patient is not exhibiting signs and symptoms of withdrawal at this time. Continue to monitor. - Time Time Spent with patient: 15-24 minutes Medications reviewed and adjusted accordingly: Yes Anticipated discharge: Home Within: within 48 hours - Inpatient Certification Based on my medical assessment, after consideration of the patient's comorbidities, presenting symptoms, or acuity I expect that the services needed warrant INPATIENT care.: Yes I certify that my determination is in accordance with my understanding of Medicare's requirements for reasonable and necessary INPATIENT services [42 CFR 412.3e].: Yes Medical Necessity: Need for IV Antibiotics, Risk of Complication if Not Cared For in Hospital - Plan Summary Plan Summary: Ultimately, the plan is to discharge the patient home on oral antibiotics.
[2018-03-14] MEDS: OXYCODONE-ACETAMINOPHEN 5-325 MG TABLET PO PRN (20:16)
[2018-03-15] MEDS: VANCOMYCIN HCL 1,000 MG in DEXTROSE 5%-WATER 250 ML IV SCH ×2 (02:03→09:58)
[2018-03-15 05:08] LABS: ABSOLUTE BASOPHILS # (AUTO) 0.1 10^3/uL (0.0-0.2); ABSOLUTE EOSINOPHILS # (AUTO) 0.2 10^3/uL (0.0-0.6); ABSOLUTE MONOCYTES (AUTO) 0.9 10^3/uL (0.1-1.4); ABSOLUTE NEUT (AUTO) 6.1 10^3/uL (1.7-8.2); BASOPHILS % (AUTO) 0.9 % (0-2); EOSINOPHILS % (AUTO) 2.2 % (0-6); HEMATOCRIT 37.2 % (37.9-51.0); HEMOGLOBIN 12.3 g/dL (13.5-17.0); LYMPHOCYTES % (AUTO) 29.2 % (13-45); MEAN CORPUSCULAR HEMOGLOBIN 30.8 pg (27.0-33.4); MEAN CORPUSCULAR HGB CONC 33.1 g/dL (32.0-36.0); MEAN CORPUSCULAR VOLUME 93 fl (80-97); MONOCYTES % (AUTO) 8.5 % (3-13); PLATELET COUNT 347 10^3/uL (150-450); RED BLOOD COUNT 4.01 10^6/uL (4.35-5.55); RED CELL DISTRIBUTION WIDTH 13.2 % (11.5-14.0); SEGMENTED NEUTROPHILS % (AUTO) 59.2 % (42-78); TOTAL CELLS COUNTED % (AUTO) 100 %; WHITE BLOOD COUNT 10.4 10^3/uL (4.0-10.5)
[2018-03-15] MEDS: HEPARIN SOD (PORCINE) 5,000 UNIT/ML 1 ML SYRINGE SUBCUT SCH (05:55)
[2018-03-15] MEDS: OXYCODONE-ACETAMINOPHEN 5-325 MG TABLET PO PRN (05:57)
[2018-03-15] MEDS ORDERED: IBUPROFEN 800 MG TABLET PO PRN (09:53)
[2018-03-15] MEDS: DOCUSATE SODIUM 100 MG CAPSULE PO SCH (09:59)
[2018-03-15 11:06] VITALS: BP 118/70
--- NOTE | 2018-03-15 11:13 | PDOC PROGRESS REPORT ---
Subjective Progress Note for:: 03/15/18 Subjective:: 37-year-old gentleman who states no fevers last night. States the pain is slightly improving. Agrees that swelling also is improving. Complains of some wrist pain. Reason For Visit: RIGHT HAND CELLULITS POLYSUBSTANCE ABUSE Physical Exam Vital Signs: Temp Pulse Resp BP Pulse Ox 36.8 C 65 16 103/54 L 100 03/15/18 03:13 03/15/18 03:13 03/15/18 03:13 03/15/18 03:13 03/15/18 03:13 Intake & Output 03/14/18 03/15/18 03/16/18 06:59 06:59 06:59 Intake Total 3310 2925 Balance 3310 2925 Weight 91.1 kg 91.7 kg General appearance: PRESENT: no acute distress Back of Hands Image: 1 - Swelling of the thumb and dorsal aspect of the hand as well as the thenar eminence are significantly improved from 48 hours ago. Range of motion of his digits are also improved and can extend and flex his digits although he does it guarding second to pain. Wrist motion still is painful but there is no fluctuance and erythema. Some tenderness at the base of the thumb and radial aspect of the wrist with no fluctuance. Does have sensation to light touch. Intact median, ulnar, radial nerve distribution for both motor and sensory. Neurological exam: PRESENT: alert, awake, oriented to person, oriented to place , oriented to time Skin exam: PRESENT: abrasion, intact. ABSENT: erythema, rash Results Laboratory Results: 03/15/18 04:38 03/14/18 04:14 03/15/18 04:38 WBC 10.4 RBC 4.01 L Hgb 12.3 L Hct 37.2 L MCV 93 MCH 30.8 MCHC 33.1 RDW 13.2 Plt Count 347 Seg Neutrophils % 59.2 Lymphocytes % 29.2 Monocytes % 8.5 Eosinophils % 2.2 Basophils % 0.9 Absolute Neutrophils 6.1 Absolute Lymphocytes 3.0 Absolute Monocytes 0.9 Absolute Eosinophils 0.2 Absolute Basophils 0.1 Impressions: Hand X-Ray 03/13/18 01:02 IMPRESSION: 1. No acute fracture. Status: Image reviewed by me Assessment & Plan - Diagnosis (1) Cellulitis of hand, right Is this a current diagnosis for this admission?: Yes - Plan Summary Plan Summary: 37-year-old gentleman IV drug abuser with cellulitis of the right hand. He is responding well to IV antibiotics. Swelling has decreased and the range of motion of his digits have increased. Pain level also has improved. Still has some discomfort at the wrist but she will think is secondary to the infection and that tendinitis that he is developed. Mother indicated that he is responding as his white count has gone from 16 down to 10. I still recommend IV antibiotics and will sign off unless there is any concerns. If he plateaus and symptoms worsen then my recommendation is to proceed with an MRI of the hand although clinically he is improving therefore believe this will not be necessary at this time.
--- NOTE | 2018-03-16 10:30 | Physician Advisory Note ---
Physician Advisor ProgressNote .: Pursuant to the plan for [facility], I have reviewed the medical record for this patient. Physician Advisor Statement: Pt has elevated LFTs. Do you think he has a type of acute hepatitis, or other possible underlying dx causing this? Thanks! CK
--- NOTE | 2018-03-20 19:08 | PDOC DISCHARGE SUMMARY ---
General - Admit/Disc Date/PCP Admission Date/Primary Care Provider: 03/13/18 07:26 Discharge Date: 03/15/18 - Discharge Diagnosis (1) Cellulitis of hand, right Is this a current diagnosis for this admission?: Yes Summary: Cellulitis of the right hand secondary to staph vs. strep infection stemming from IV drug abuse. Significant swelling to the right thumb and dorsal aspect of the right hand. + TTP Started on IV vancomycin, continued on Bactrim post-discharge Patient is afebrile, leukocytosis resolved. Blood cultures NO GROWTH. Orthopedic surgery was consulted upon the patient's admission, there is no surgical intervention that is warranted at this time. Medical management only. (2) Pain Is this a current diagnosis for this admission?: Yes Summary: Tylenol for pain control (3) Polysubstance abuse Is this a current diagnosis for this admission?: Yes Summary: The patient endorses a history of cocaine and heroin use. The patient did not exhibit signs or symptoms of withdrawal. Counseled on the importance of stopping iv drug use and the likelihood of infection reoccurrence if he continues to use IV drugs - Additional Information Resuscitation Status: Full Code Discharge Diet: As Tolerated Discharge Activity: Activity As Tolerated Prescriptions: Sulfamethoxazole/Trimethoprim [Sulfamethoxazole-Tmp Ds Tablet] 1 each PO BID # 16 tablet Home Medications: Sulfamethoxazole/Trimethoprim [Sulfamethoxazole-Tmp Ds Tablet] 1 each PO BID # 16 tablet 03/15/18 History of Present Illness History of Present Illness: ENRIQUETA GREY is a 37 year old male with a history of polysubstance IV drug abuse. 48 hours of right hand pain and swelling following IV drug use in the region. Patient denies previous episode, chest pain palpitations shortness of breath. In the emergency room is found to have leukocytosis marketed swelling of the hand increased pain with clenching of the first, no lymphangitic spread. He is evaluated by orthopedic surgery, receives IV clindamycin and vancomycin. He is referred to the hospitalist for admission. Hospital Course Hospital Course: as above Physical Exam Vital Signs: Temp Pulse Resp BP Pulse Ox 98.2 F 65 16 118/70 100 03/15/18 11:05 03/15/18 11:05 03/15/18 11:05 03/15/18 11:05 03/15/18 11:05 Results Laboratory Results: 03/15/18 04:38 03/14/18 04:14 Impressions: Hand X-Ray 03/13/18 01:02 IMPRESSION: 1. No acute fracture. Status: Imported from PACS Qualifiers - * PATIENT BEING DISCHARGED WITH ANY OF THE FOLLOWING DIAGNOSIS: No Plan Discharge Plan: DISCHARGED HOME WITH PO BACTRIM AND INSTRUCTED TO TAKE TYLENOL PRN FOR PAIN CONTROL Time Spent: Less than 30 Minutes
== END 2018-03-15 11:39 | disposition home or self-care (01) | DRG 603 ==
LOC: ER 00:19 → EH 07:26 → 3N 12:13
PROVIDERS: ADMIT Internal Medicine; ATTEND Internal Medicine
DX: L03.113 Cellulitis of right upper limb (principal); M79.89 Other specified soft tissue disorders; F17.210 Nicotine dependence, cigarettes, uncomplicated; F14.10 Cocaine abuse, uncomplicated; F11.10 Opioid abuse, uncomplicated
CPT/HCPCS: 36415; 80048; 80053; 80202; 85025; 85652; 86140; 87040; 96365; 96366; 96375; 99285; J1170; J1644; J1885; J3370; J7030; J7060

== ENCOUNTER 2020-10-12 18:05 | Inpatient (IN) | payer OTHER ==
[2020-10-12] MEDS ORDERED: RINGERS LACTATED IV ONE (18:54)
[2020-10-12] MEDS ORDERED: CEFTRIAXONE 1 GM/D5W RTU 1 GM/50 ML RTUPB IV ONE (18:54)
[2020-10-12] MEDS ORDERED: ACETAMINOPHEN 325 MG TABLET PO ONE (18:54)
--- NOTE | 2020-10-12 18:59 | ER Document Report ---
ED Medical Screen (RME) - General Chief Complaint: Skin Problem Stated Complaint: SKIN ISSUE Time Seen by Provider: 10/12/20 18:47 Mode of Arrival: Ambulatory Notes: Patient presents with large abscess to right upper extremity. Patient states that it has been constantly draining and he developed a fever today. Patient with foul-smelling purulent drainage to bandage to the right upper extremity. Patient denies any chronic medical problems. I have greeted and performed a rapid initial assessment of this patient. A comprehensive ED assessment and evaluation of the patient, analysis of test results and completion of the medical decision making process will be conducted by additional ED providers. TRAVEL OUTSIDE OF THE [place] IN LAST 30 DAYS: No - Related Data Allergies/Adverse Reactions: No Known Allergies Allergy (Verified 10/12/20 18:46) Past Medical History - Social History Chew tobacco use (# tins/day): No Frequency of alcohol use: None Drug Abuse: None Pulmonary Medical History: Reports: Hx Asthma Renal/ Medical History: Denies: Hx Peritoneal Dialysis - Immunizations Hx Diphtheria, Pertussis, Tetanus Vaccination: Yes Physical Exam - Vital signs Vitals: Temp Pulse Resp BP Pulse Ox 101.1 F H 104 H 16 140/71 H 100 10/12/20 18:31 10/12/20 18:31 10/12/20 18:31 10/12/20 18:31 10/12/20 18:31 - General General appearance: Alert Notes: Large abscess to right upper arm with drainage noted to the right antecubital area. Course - Vital Signs Vital signs: Temp Pulse Resp BP Pulse Ox 101.1 F H 104 H 16 140/71 H 100 10/12/20 18:31 10/12/20 18:31 10/12/20 18:31 10/12/20 18:31 10/12/20 18:31
[2020-10-12] MEDS ORDERED: VANCOMYCIN HCL INJ 1000 MG VIAL IV ONE (19:01)
--- NOTE | 2020-10-12 19:47 | ER Document Report ---
ED General - General Chief Complaint: Skin Problem Stated Complaint: SKIN ISSUE Time Seen by Provider: 10/12/20 18:47 Mode of Arrival: Ambulatory Notes: Patient presents to the ER for evaluation of abscess to the right arm extending into the right bicep area that began several days ago. The patient states he is an IV heroin user. He states he does routinely use in this arm. He admits to fever. He admits to nausea. He denies vomiting. The patient states the pain is gotten so bad he is unable to move his elbow. Nursing notes reviewed and past medical, social, and family histories reviewed and validated. TRAVEL OUTSIDE OF THE [place] IN LAST 30 DAYS: No - Related Data Allergies/Adverse Reactions: No Known Allergies Allergy (Verified 10/12/20 18:46) Past Medical History - General Information source: Patient - Social History Smoking Status: Current Every Day Smoker Cigarette use (# per day): Yes - 1 pack Chew tobacco use (# tins/day): No Smoking Education Provided: Yes Frequency of alcohol use: None Drug Abuse: Heroin Lives with: Alone Family History: COPD Patient has suicidal ideation: No Patient has homicidal ideation: No - Past Medical History Cardiac Medical History: Reports: None Pulmonary Medical History: Reports: Hx Asthma EENT Medical History: Reports: None Neurological Medical History: Reports: None Endocrine Medical History: Reports: None Renal/ Medical History: Denies: Hx Peritoneal Dialysis Malignancy Medical History: Reports None GI Medical History: Reports: None Musculoskeletal Medical History: Reports None Skin Medical History: Reports None Psychiatric Medical History: Reports: None Traumatic Medical History: Reports: None Infectious Medical History: Reports: None Past Surgical History: Reports: None - Immunizations Immunizations up to date: Yes Hx Diphtheria, Pertussis, Tetanus Vaccination: Yes Review of Systems - Review of Systems Notes: Constitutional: Positive for fever. HENT: Negative for sore throat. Eyes: Negative for visual changes. Cardiovascular: Negative for chest pain. Respiratory: Negative for shortness of breath. Gastrointestinal: Negative for abdominal pain, vomiting or diarrhea. Genitourinary: Negative for dysuria. Musculoskeletal: Positive right arm pain. Skin: Negative for rash. Neurological: Negative for headaches, weakness or numbness. 10 point ROS negative except as marked above and in HPI. Physical Exam - Vital signs Vitals: Temp Pulse Resp BP Pulse Ox 101.1 F H 104 H 16 140/71 H 100 10/12/20 18:31 10/12/20 18:31 10/12/20 18:31 10/12/20 18:31 10/12/20 18:31 - Notes Notes: CONSTITUTIONAL: Well appearing. No acute distress. SKIN: There is a very large area of erythema and induration over the right AC extending into the right bicep area. The arm is extremely tight. There is good distal circulation noted. EYES: Extraocular movements are grossly intact, clear conjunctiva HENT: Normocephalic, atraumatic, moist mucus membranes NECK: No obvious swelling, normal range of motion PULMONARY: Normal chest rise and fall. Breath sounds clear and equal bilaterally. No respiratory distress or stridor CARDIOVASCULAR: Regular rate. No murmurs, rubs, gallops. Distal extremities are warm and well perfused. NEUROLOGIC: Normal speech, moves all extremities. MUSCULOSKELETAL: No gross deformities, atraumatic PSYCHIATRIC: Normal mood and affect Course - Vital Signs Vital signs: Temp Pulse Resp BP Pulse Ox 101.1 F H 104 H 15 140/71 H 98 10/12/20 18:31 10/12/20 18:31 10/12/20 20:09 10/12/20 18:31 10/12/20 20:09 - Laboratory Result Diagrams: 10/12/20 20:08 10/12/20 20:08 Laboratory results interpreted by me: 10/12/20 10/12/20 20:08 20:08 WBC 14.3 H RBC 3.81 L Hgb 10.9 L Hct 33.4 L RDW 14.8 H [place] % (Auto) 17.6 H Absolute Neuts (auto) 9.2 H Absolute Monos (auto) 2.5 H Sodium 131.6 L AST 106 H Alkaline Phosphatase 170 H Albumin 3.1 L - Consults Surgical consult Time consulted: 00:20 Reason for consultation: 10/13/20 00:20 This case was discussed with Dr. Wong who asked that the patient be kept n.p.o. and be admitted by the hospitalist. Hospitalist consult Time consulted: 00:41 Reason for consultation: 10/13/20 00:41 This case was discussed with Dr. Yates who agrees to evaluate the patient in the emergency room for admission. Discharge - Discharge Clinical Impression: IV drug abuse, Abscess of right arm Cellulitis Qualifiers: Site of cellulitis: extremity Site of cellulitis of extremity: upper extremity Laterality: right Qualified Code(s): L03.113 - Cellulitis of right upper limb Disposition: ADMITTED INPATIENT Admitting Provider: Trudy (Hospitalist) Unit Admitted: Surgical Floor
--- NOTE | 2020-10-12 19:49 | EKG REPORT ---
SEVERITY:- BORDERLINE ECG - SINUS TACHYCARDIA BORDERLINE T WAVE ABNORMALITIES : Confirmed by: Lance Ernandez MD 12-Oct-2020 19:49:15
[2020-10-12 20:43] LABS: ABSOLUTE BASOPHILS # (AUTO) 0.1 10^3/uL (0.0-0.2); ABSOLUTE LYMPHOCYTES (AUTO) 2.5 10^3/uL (0.5-4.7); ABSOLUTE MONOCYTES (AUTO) 2.5 10^3/uL (0.1-1.4); ABSOLUTE NEUT (AUTO) 9.2 10^3/uL (1.7-8.2); BASOPHILS % (AUTO) 0.6 % (0-2); EOSINOPHILS % (AUTO) 0.3 % (0-6); HEMATOCRIT 33.4 % (37.9-51.0); HEMOGLOBIN 10.9 g/dL (13.5-17.0); LYMPHOCYTES % (AUTO) 17.2 % (13-45); MEAN CORPUSCULAR HEMOGLOBIN 28.6 pg (27.0-33.4); MEAN CORPUSCULAR HGB CONC 32.6 g/dL (32.0-36.0); MEAN CORPUSCULAR VOLUME 88 fl (80-97); MONOCYTES % (AUTO) 17.6 % (3-13); PLATELET COUNT 313 10^3/uL (150-450); RED BLOOD COUNT 3.81 10^6/uL (4.35-5.55); RED CELL DISTRIBUTION WIDTH 14.8 % (11.5-14.0); SEGMENTED NEUTROPHILS % (AUTO) 64.3 % (42-78); TOTAL CELLS COUNTED % (AUTO) 100 %; WHITE BLOOD COUNT 14.3 10^3/uL (4.0-10.5)
[2020-10-12 20:47] LABS: ALBUMIN 3.1 g/dL (3.5-5.0); ALKALINE PHOSPHATASE 170 U/L (38-126); ANION GAP 5 (5-19); ASPARTATE AMINO TRANSFERASE 106 U/L (17-59); BILIRUBIN,DIRECT 0.4 mg/dL (0.0-0.4); BLOOD UREA NITROGEN 8 mg/dL (7-20); CALCIUM 8.7 mg/dL (8.4-10.2); CARBON DIOXIDE 29 mmol/L (22-30); CHLORIDE 98 mmol/L (98-107); GLUCOSE 110 mg/dL (75-110); POTASSIUM 3.8 mmol/L (3.6-5.0); TOTAL PROTEIN 6.7 g/dL (6.3-8.2)
[2020-10-12 20:59] LABS: INTERNATIONAL RATION (INR) 1.08; PROTHROMBIN TIME 14.2 SEC (11.4-15.4)
[2020-10-12] MEDS ORDERED: VANCOMYCIN HCL INJ 1000 MG VIAL ONE (21:04)
--- NOTE | 2020-10-12 23:56 | RADIOLOGY REPORT (SQ) ---
CT right arm with contrast on 10/12/2020 at 10:54 PM CLINICAL INDICATION: Abscess TECHNIQUE: Multiple axial images are obtained from the right shoulder to the right wrist following the administration of IV contrast, 100 mL Omnipaque 350 contrast was administered intravenously. Sagittal and coronal reformatted images are also performed and reviewed. This exam was performed according to our departmental dose-optimization program, which includes automated exposure control, adjustment of the mA and/or kV according to patient size and/or use of iterative reconstruction technique. Total DLP is 153.49 mGy*cm. COMPARISON: None FINDINGS: Examination is limited by artifact from the patient's body habitus. In the anterior aspect of the patient's right biceps musculature is poorly visualized air and fluid collection consistent with intramuscular abscess. The margins are not well visualized but based upon the distribution of air this measures at least 5.9 x 2.5 x 9 cm in dimensions. There is likely adjacent cellulitis in the anterior upper arm soft tissues. No other air is noted elsewhere to suggest necrotizing fasciitis. No other fluid collection is noted. There are no acute fracture lines. No definite CT evidence of osteomyelitis is noted. No other bony or soft tissue abnormality is noted. IMPRESSION: Poorly visualized apparent intramuscular abscess in the anterior aspect of the patient's right biceps musculature with likely adjacent cellulitis.
[2020-10-13] MEDS ORDERED: GLUCAGON,HUMAN RECOMB 1 MG INJ SUBCUT PRN ×2 (01:24→07:05)
[2020-10-13] MEDS ORDERED: DEXTROSE 50%-WATER 25 GM/50 ML DISP.SYRIN IV PRN ×4 (01:24→07:05)
[2020-10-13] MEDS ORDERED: DEXTROSE 40% GEL 15 GM TUBE PO PRN ×4 (01:24→07:05)
[2020-10-13] MEDS ORDERED: VANCOMYCIN HCL 0 MG in DEXTROSE 5%-WATER 250 ML IV NR (01:30)
--- NOTE | 2020-10-13 01:38 | PDOC H&P ---
History of Present Illness Admission Date/PCP: 10/13/20 01:06 History of Present Illness: ENRIQUETA GREY is a 39 year old male with a history of IV heroin abuse who is head swelling in his right upper extremity for a few days. It has gotten red and tender and has had an area of drainage. He is febrile. CT confirms that he has a large abscess in the right upper extremity. Surgery was consulted and is going to the OR in the morning for drainage. Our service was consulted for admi ssion and antibiotic management. Past Medical History Cardiac Medical History: Reports: None Pulmonary Medical History: Reports: Asthma EENT Medical History: Reports: None Neurological Medical History: Reports: None Endocrine Medical History: Reports: None Malignancy Medical History: Reports: None GI Medical History: Reports: None Musculoskeltal Medical History: Reports: None Skin Medical History: Reports: None Psychiatric Medical History: Reports: None Traumatic Medical History: Reports: None Infectious Medical History: Reports: None Past Surgical History Past Surgical History: Reports: None Social History Lives with: Alone Smoking Status: Current Every Day Smoker Electronic Cigarette use?: No Frequency of Alcohol Use: Occasional Hx Recreational Drug Use: Yes Drugs: Cocaine, Heroin Hx Prescription Drug Abuse: No Family History Family History: COPD Parental Family History Reviewed: Yes Children Family History Reviewed: Yes Sibling(s) Family History Reviewed.: Yes Medication/Allergy Home Medications: Sulfamethoxazole/Trimethoprim [Sulfamethoxazole-Tmp Ds Tablet] 1 each PO BID #16 tablet 03/15/18 Allergies/Adverse Reactions: No Known Allergies Allergy (Verified 10/12/20 18:46) Review of Systems All systems: reviewed and no additional remarkable complaints except as stated - All systems were reviewed and were negative except as noted in the HPI Physical Exam Vital Signs: Temp Pulse Resp BP Pulse Ox 101.1 F H 104 H 18 127/80 H 100 10/12/20 18:31 10/12/20 18:31 10/13/20 01:01 10/13/20 01:00 10/13/20 01:01 Intake & Output 10/11/20 10/12/20 10/13/20 06:59 06:59 06:59 Intake Total 50 Balance 50 Weight 127.006 kg General appearance: PRESENT: no acute distress, cooperative, disheveled, morbidly obese, other - Terrible body odor Head exam: PRESENT: atraumatic, normocephalic Eye exam: PRESENT: EOMI, PERRLA. ABSENT: conjunctival injection, nystagmus, scleral icterus Ear exam: PRESENT: normal external ear exam Respiratory exam: PRESENT: clear to auscultation marian, symmetrical, unlabored. ABSENT: accessory muscle use, chest wall tenderness, crackles, prolonged e xpiratory phas, rhonchi, tachypnea, wheezes Cardiovascular exam: PRESENT: +S1, +S2, tachycardia Pulses: PRESENT: normal carotid pulses Vascular exam: PRESENT: normal capillary refill GI/Abdominal exam: PRESENT: normal bowel sounds, soft. ABSENT: distended, guarding, rebound, tenderness Extremities exam: PRESENT: other - Left upper extremity is swollen and erythematous proximal to the elbow with an area of drainage on the anterior surface just proximal to the elbow. ABSENT: clubbing, pedal edema Neurological exam: PRESENT: awake, oriented to person, oriented to place, oriented to situation, CN II-XII grossly intact. ABSENT: motor sensory deficit Psychiatric exam: PRESENT: flat affect Skin exam: PRESENT: dry, warm Results Laboratory Results: 10/12/20 20:08 10/12/20 20:08 10/12/20 10/12/20 10/12/20 20:08 20:08 20:08 WBC 14.3 H RBC 3.81 L Hgb 10.9 L Hct 33.4 L MCV 88 MCH 28.6 MCHC 32.6 RDW 14.8 H Plt Count 313 Seg Neutrophils % 64.3 Sodium 131.6 L Potassium 3.8 Chloride 98 Carbon Dioxide 29 Anion Gap 5 BUN 8 Creatinine 0.85 Est GFR ( Amer) > 60 Glucose 110 Lactic Acid 1.3 Calcium 8.7 Total Bilirubin 1.0 AST 106 H Alkaline Phosphatase 170 H Total Protein 6.7 Albumin 3.1 L Impressions: Upper Extremity CT 10/12/20 19:46 IMPRESSION: Poorly visualized apparent intramuscular abscess in the anterior aspect of the patient's right biceps musculature with likely adjacent cellulitis. Assessment and Plan - Diagnosis (1) Abscess of right arm Is this a current diagnosis for this admission?: Yes (2) Cellulitis Qualifiers: Site of cellulitis: extremity Site of cellulitis of extremity: upper extrem ity Laterality: right Qualified Code(s): L03.113 - Cellulitis of right upper limb Is this a current diagnosis for this admission?: Yes (3) IV drug abuse Is this a current diagnosis for this admission?: Yes - Plan Summary Summary: Start him on vancomycin and maintenance IV fluids and keep him n.p.o. in anticipation of surgery in the morning. We will obtain cultures from the abscess at that time. Blood cultures are pending. He said he uses anywhere from half a gram to a gram of heroin a day. We will put him on some methadone to avoid withdrawal while he is in the hospital. - Time Time Spent with patient: 35 or more minutes Anticipated Discharge Disposition: Home, Self Care Anticipated Discharge Timeframe: Unknown - Inpatient Certification Based on my medical assessment, after consideration of the patient's comorbidities, presenting symptoms, or acuity I expect that the services needed warrant INPATIENT care.: Yes I certify that my determination is in accordance with my understanding of Medicare's requirements for reasonable and necessary INPATIENT services [42 CFR 412.3e].: Yes Medical Necessity: Need Close Monitoring Due to Risk of Patient Decompensation, Need For IV Fluids, Need For Continuous Telemetry Monitoring, Need for IV Anti biotics, Need for Surgery, Risk of Complication if Not Cared For in Hospital
[2020-10-13] MEDS ORDERED: FENTANYL CITRATE INJ/PF 100 MCG/2 ML AMPUL ONE (05:56)
[2020-10-13] MEDS ORDERED: EPHEDRINE SULFATE INJ 50 MG/1 ML AMPULE ONE (05:56)
[2020-10-13] MEDS ORDERED: DEXMEDETOMIDINE INJ 80 MCG/20 ML VIAL IV ONE (05:56)
[2020-10-13] MEDS ORDERED: MIDAZOLAM 2 MG/2 ML INJ ONE (05:56)
[2020-10-13] MEDS ORDERED: PROPOFOL INJ 200 MG/20 ML VIAL IV ONE (05:56)
[2020-10-13] MEDS ORDERED: BUPIVACAINE HCL 0.25 % INJ/PF (2.5 MG/1 ML) 30 ML VIAL ONE (05:59)
[2020-10-13] MEDS ORDERED: LIDOCAINE 0.5% INJ-PF (5 MG/ML) 50 ML SDV ONE (05:59)
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
[2020-10-13] MEDS ORDERED: CEFAZOLIN INJ 1 GM VIAL ONE (06:26)
--- NOTE | 2020-10-13 07:14 | Operative Report ---
Operative Report DATE OF SURGERY: 10/13/20 PREOPERATIVE DIAGNOSIS: 1. Extensive soft tissue infection right upper extremi ty. 2. IV drug abuse. 3. Smoker POSTOPERATIVE DIAGNOSIS: Same with cellulitis, fasciitis, myositis of the right upper extremity OPERATION: 1. Pus drainage, and surgical debridement of skin, subcutaneous tissue, fascia, and muscle including the biceps brachii. 2. Packing of the right upper extremity wound open SURGEON: POOJA IRIZARRY ANESTHESIA: GA TISSUE REMOVED OR ALTERED: As above COMPLICATIONS: None ESTIMATED BLOOD LOSS: 75 cc INTRAOPERATIVE FINDINGS: See below PROCEDURE: Patient was taken the preop holding area, after which determined patient was Covid negative, to the main operating room where general anesthesia was induced. The right arm was prepped and draped in sterile fashion. Surgical plan and surgical timeout were conducted. The findings were significant for several holes at the antecubital crease draining pus. These holes were oriented transversely. And incision was made connecting all 3 of the drainage holes. This immediately released a significant amount of pus from the upper extremity anterior surface of the biceps brachii. Therefore a longitudinal incision was made approximately 18 cm long along the anterior surface of the upper arm towards the shoulder. Skin and subcutaneous tissue was filleted open, and the underlying biceps muscle was infected with pus. Multiple loculations within muscle fibers were broken up. Large pockets of pus were evacuated inferiorly and superiorly the left fascia overlying the septal muscle. Some of the fascia was debrided with pickups, scissors and cautery. The pockets of pus extended from the proximal upper arm towards the elbow on both the superior and inferior sides of the muscle. The infection did not extend distal to the antecubital fossa. No identifiable superficial veins due to the distorted anatomy from the infection and tissue necrosis. Segments of skin at the antecubital fossa were excisionally debrided. We now irrigated all of the above cavities with 6 L of warm saline. Fragments of biceps muscle were debrided, however the majority of the muscle was left intact, with the irrigation, and finger dissection within the muscle fibers breaking up any other loose pockets of pus. The remaining tissue bled briskly. At this point felt the operation was complete. Hemostasis was achieved with electrocautery. Large open pockets inferior and superior to the biceps brachii muscle were packed with iodoform soaked Kerlix, then dry Curlex, 6 inch Daniel wrap applied to the right upper extremity. Patient taught procedure well, extubated, taken recovery in stable condition.
[2020-10-13] MEDS ORDERED: MEPERIDINE HCL/PF INJ 25 MG/1 ML DISP.SYRIN IV PRN (07:22)
[2020-10-13] MEDS ORDERED: FENTANYL CITRATE INJ/PF 100 MCG/2 ML AMPUL IV PRN ×3 (07:22)
[2020-10-13] MEDS ORDERED: OXYCODONE-ACETAMINOPHEN 5-325 MG TABLET PO PRN ×2 (07:22)
[2020-10-13] MEDS ORDERED: DIPHENHYDRAMINE HCL 50 MG/ML VIAL IV PRN (07:22)
[2020-10-13] MEDS ORDERED: ONDANSETRON HCL INJ/PF 4 MG/2 ML SDV IV PRN (07:22)
[2020-10-13] MEDS ORDERED: PROMETHAZINE HCL INJ 25 MG/1 ML VIAL IV PRN ×2 (07:22)
[2020-10-13] MEDS: FENTANYL CITRATE INJ/PF 100 MCG/2 ML AMPUL ONE ×2 (07:35→07:40)
[2020-10-13] MEDS ORDERED: OXYCODONE-ACETAMINOPHEN 5-325 MG TABLET ONE (08:14)
[2020-10-13] MEDS ORDERED: METHADONE HCL 10 MG TABLET ONE (09:40)
[2020-10-13] MEDS: METHADONE HCL 10 MG TABLET PO SCH (10:00)
[2020-10-13 10:28] LABS: HEMATOCRIT 32.9 % (37.9-51.0); HEMOGLOBIN 11.1 g/dL (13.5-17.0); MEAN CORPUSCULAR HEMOGLOBIN 29.5 pg (27.0-33.4); MEAN CORPUSCULAR HGB CONC 33.7 g/dL (32.0-36.0); MEAN CORPUSCULAR VOLUME 88 fl (80-97); PLATELET COUNT 322 10^3/uL (150-450); RED BLOOD COUNT 3.76 10^6/uL (4.35-5.55); RED CELL DISTRIBUTION WIDTH 14.8 % (11.5-14.0)
[2020-10-13 10:50] LABS: ANION GAP 5 (5-19); BLOOD UREA NITROGEN 5 mg/dL (7-20); CALCIUM 8.8 mg/dL (8.4-10.2); CARBON DIOXIDE 26 mmol/L (22-30); CHLORIDE 101 mmol/L (98-107); GLUCOSE 216 mg/dL (75-110); POTASSIUM 4.1 mmol/L (3.6-5.0)
[2020-10-13] MEDS: POTASSI CL 20 MEQ/D5-1/2NS 1L 1,000 ML IV PRN (11:41)
[2020-10-13] MEDS ORDERED: PHENYLEPHRINE HCL INJ/PF 10 MG/1 ML SDV ONE (12:32)
[2020-10-13] MEDS ORDERED: KETOROLAC TROMETHAMINE 60 MG/2 ML SDV ONE (12:32)
[2020-10-13] MEDS ORDERED: ONDANSETRON HCL INJ/PF 4 MG/2 ML SDV ONE (12:32)
[2020-10-13] MEDS ORDERED: DEXAMETHASONE SOD PHOSPHATE INJ 4 MG/1 ML VIAL ONE (12:32)
[2020-10-13] MEDS ORDERED: LIDOCAINE 2% INJ-PF (20 MG/ML) 2 ML AMPUL ONE (12:32)
[2020-10-13] MEDS: VANCOMYCIN HCL 1,500 MG in DEXTROSE 5%-WATER 250 ML IV SCH ×2 (15:09→21:40)
[2020-10-13] MEDS: SENNOSIDES/DOCUSATE 8.6-50 MG 1 EACH TABLET PO SCH (15:10)
[2020-10-13] MEDS: OXYCODONE-ACETAMINOPHEN 5-325 MG TABLET PO PRN (21:39)
[2020-10-14] MEDS: OXYCODONE-ACETAMINOPHEN 5-325 MG TABLET PO PRN ×3 (05:00→21:18)
[2020-10-14] MEDS: VANCOMYCIN HCL 1,500 MG in DEXTROSE 5%-WATER 250 ML IV SCH ×3 (05:01→21:18)
[2020-10-14 07:03] LABS: HEMATOCRIT 31.6 % (37.9-51.0); HEMOGLOBIN 10.2 g/dL (13.5-17.0); MEAN CORPUSCULAR HEMOGLOBIN 28.4 pg (27.0-33.4); MEAN CORPUSCULAR HGB CONC 32.2 g/dL (32.0-36.0); MEAN CORPUSCULAR VOLUME 88 fl (80-97); PLATELET COUNT 302 10^3/uL (150-450); RED BLOOD COUNT 3.58 10^6/uL (4.35-5.55); RED CELL DISTRIBUTION WIDTH 14.9 % (11.5-14.0); WHITE BLOOD COUNT 10.1 10^3/uL (4.0-10.5)
[2020-10-14 07:30] LABS: ANION GAP 6 (5-19); BLOOD UREA NITROGEN 6 mg/dL (7-20); CALCIUM 8.5 mg/dL (8.4-10.2); CARBON DIOXIDE 29 mmol/L (22-30); CHLORIDE 102 mmol/L (98-107); GLUCOSE 132 mg/dL (75-110)
[2020-10-14] MEDS: METHADONE HCL 10 MG TABLET PO SCH (10:02)
[2020-10-14] MEDS: SENNOSIDES/DOCUSATE 8.6-50 MG 1 EACH TABLET PO SCH (10:02)
[2020-10-14] MEDS: KETOROLAC TROMETHAMINE INJ/PF 30 MG/1 ML SDV IV PRN (11:15)
--- NOTE | 2020-10-14 11:33 | PDOC PROGRESS REPORT ---
Subjective Date:: 10/14/20 Subjective:: Has some right arm pain. Otherwise doing okay. Denies fever chills. Denies nause a vomiting. Reason For Visit: SEPSIS, LEFT UPPER EXTREMITY ABSCESS, CELLULITIS Physical Exam Vital Signs: Temp Pulse Resp BP Pulse Ox 98.3 F 68 16 126/66 H 99 10/14/20 07:54 10/14/20 07:54 10/14/20 07:54 10/14/20 07:54 10/14/20 07:54 Intake & Output 10/13/20 10/14/20 10/15/20 06:59 06:59 06:59 Intake Total 50 1440 250 Output Total 50 Balance 50 1390 250 Weight 127.006 kg 116.6 kg General appearance: PRESENT: no acute distress, cooperative Neck exam: ABSENT: JVD Respiratory exam: PRESENT: symmetrical, unlabored. ABSENT: accessory muscle use, chest wall tenderness, retraction, tachypnea Cardiovascular exam: PRESENT: RRR, +S1, +S2. ABSENT: tachycardia GI/Abdominal exam: PRESENT: soft. ABSENT: tenderness Extremities exam: PRESENT: other - Right arm wound pain clean dressing. No evidence of saturation no bleeding through the dressing. Mild tenderness on palpation to the dressing. Right arm does seem significantly larger than left.of course partly due to the dressing. Neurological exam: PRESENT: alert, awake, oriented to person, oriented to place, oriented to time Psychiatric exam: ABSENT: agitated, anxious Results Laboratory Results: 10/14/20 05:59 10/14/20 05:59 10/14/20 10/14/20 05:59 05:59 WBC 10.1 RBC 3.58 L Hgb 10.2 L Hct 31.6 L MCV 88 MCH 28.4 MCHC 32.2 RDW 14.9 H Plt Count 302 Sodium 136.5 L Potassium 4.0 Chloride 102 Carbon Dioxide 29 Anion Gap 6 BUN 6 L Creatinine 0.70 Est GFR ( Amer) > 60 Glucose 132 H Calcium 8.5 Impressions: Upper Extremity CT 10/12/20 19:46 IMPRESSION: Poorly visualized apparent intramuscular abscess in the anterior aspect of the patient's right biceps musculature with likely adjacent cellulitis. Assessment and Plan - Diagnosis (1) Myofascitis Is this a current diagnosis for this admission?: Yes (2) Abscess of right arm Is this a current diagnosis for this admission?: Yes (3) Cellulitis Qualifiers: Site of cellulitis: extremity Site of cellulitis of extremity: upper extremity Laterality: right Qualified Code(s): L03.113 - Cellulitis of right upper limb Is this a current diagnosis for this admission?: Yes (4) IV drug abuse Is this a current diagnosis for this admission?: Yes - Plan Summary Summary: 10/13/2020 Start him on vancomycin and maintenance IV fluids and keep him n.p.o. in anticipation of surgery in the morning. We will obtain cultures from the abscess at that time. Blood cultures are pending. He said he uses anywhere from half a gram to a gram of heroin a day. We will put him on some methadone to avoid withdrawal while he is in the hospital. 10/14/2020 Patient underwent surgery yesterday which revealed abscess, myositis and fasc iitis. Post drainage and debridement were performed. Currently area is dressed. Surgery to manage surgical wound. Continue pain control with IV medications as needed. Patient counseled on cessation of polysubstance abuse. No evidence of withdrawal at the moment. We will continue to monitor closely. Blood culture is negative at 24 hours. Deep tissue culture from surgery is growing gram-positive cocci. Will await identification. Leukocytosis is resolved. Continue vancomycin. Check vancomycin troughs. Monitor renal function. - Time Time Spent with patient: Less than 15 minutes Anticipated Discharge Disposition: Home, Self Care Anticipated Discharge Timeframe: within 72 hours
--- NOTE | 2020-10-14 12:37 | PDOC PROGRESS REPORT ---
Subjective Date:: 10/14/20 Reason For Visit: SEPSIS, LEFT UPPER EXTREMITY ABSCESS, CELLULITIS Physical Exam Vital Signs: Temp Pulse Resp BP Pulse Ox 98.3 F 68 16 126/66 H 99 10/14/20 07:54 10/14/20 07:54 10/14/20 07:54 10/14/20 07:54 10/14/20 07:54 Intake & Output 10/13/20 10/14/20 10/15/20 06:59 06:59 06:59 Intake Total 50 1440 250 Output Total 50 Balance 50 1390 250 Weight 127.006 kg 116.6 kg Results Laboratory Results: 10/14/20 05:59 10/14/20 05:59 10/14/20 10/14/20 05:59 05:59 WBC 10.1 RBC 3.58 L Hgb 10.2 L Hct 31.6 L MCV 88 MCH 28.4 MCHC 32.2 RDW 14.9 H Plt Count 302 Sodium 136.5 L Potassium 4.0 Chloride 102 Carbon Dioxide 29 Anion Gap 6 BUN 6 L Creatinine 0.70 Est GFR ( Amer) > 60 Glucose 132 H Calcium 8.5 10/13/20 06:36 Arm - Right Side Abscess Gram Stain - Final Impressions: Upper Extremity CT 10/12/20 19:46 IMPRESSION: Poorly visualized apparent intramuscular abscess in the anterior aspect of the patient's right biceps musculature with likely adjacent cellulitis. Assessment & Plan - Diagnosis (1) Abscess of right arm Is this a current diagnosis for this admission?: Yes - Time Anticipated Discharge Disposition: Home with Home Health Anticipated Discharge Timeframe: within 48 hours - Plan Summary Plan Summary: 39-year-old male status post incision and drainage of a large right upper extremity abscess, consistent with septic thrombophlebitis. Patient is doing reasonably well today. He complains of pain. I have changed his dressing at the bedside today. The wound appears clean, without signs of overt purulence. Continue with antibiotics. Arrange home health for dressing changes. Start damp to dry dressing changes twice daily.
[2020-10-14 14:22] LABS: VANCOMYCIN,TROUGH 14.8 ug/mL (5.0-20.0)
[2020-10-15] MEDS: KETOROLAC TROMETHAMINE INJ/PF 30 MG/1 ML SDV IV PRN (00:16)
[2020-10-15] MEDS: POTASSI CL 20 MEQ/D5-1/2NS 1L 1,000 ML IV PRN (01:17)
[2020-10-15] MEDS: OXYCODONE-ACETAMINOPHEN 5-325 MG TABLET PO PRN ×3 (01:18→13:36)
[2020-10-15] MEDS: VANCOMYCIN HCL 1,500 MG in DEXTROSE 5%-WATER 250 ML IV SCH (05:47)
[2020-10-15 07:06] LABS: HEMATOCRIT 30.5 % (37.9-51.0); MEAN CORPUSCULAR HEMOGLOBIN 29.1 pg (27.0-33.4); MEAN CORPUSCULAR HGB CONC 32.8 g/dL (32.0-36.0); MEAN CORPUSCULAR VOLUME 89 fl (80-97); PLATELET COUNT 381 10^3/uL (150-450); RED BLOOD COUNT 3.43 10^6/uL (4.35-5.55); RED CELL DISTRIBUTION WIDTH 15.2 % (11.5-14.0); WHITE BLOOD COUNT 8.6 10^3/uL (4.0-10.5)
[2020-10-15 07:20] LABS: BLOOD UREA NITROGEN 6 mg/dL (7-20); CALCIUM 8.6 mg/dL (8.4-10.2); GLUCOSE 142 mg/dL (75-110); POTASSIUM 3.8 mmol/L (3.6-5.0)
[2020-10-15 07:27] LABS: CARBON DIOXIDE 29 mmol/L (22-30); CHLORIDE 103 mmol/L (98-107)
[2020-10-15 07:33] LABS: ANION GAP 4 (5-19)
[2020-10-15] MEDS ORDERED: INFLUENZA QUAD (6MOS+) 2020-21 VAC 0.5 ML SYR IM ONE (08:00)
[2020-10-15] MEDS: SENNOSIDES/DOCUSATE 8.6-50 MG 1 EACH TABLET PO SCH (09:35)
[2020-10-15] MEDS: METHADONE HCL 10 MG TABLET PO SCH (09:35)
--- NOTE | 2020-10-15 13:28 | PDOC PROGRESS REPORT ---
Subjective Date:: 10/15/20 Reason For Visit: SEPSIS, LEFT UPPER EXTREMITY ABSCESS, CELLULITIS Physical Exam Vital Signs: Temp Pulse Resp BP Pulse Ox 98.3 F 62 18 120/67 97 10/15/20 11:41 10/15/20 11:41 10/15/20 11:41 10/15/20 11:41 10/15/20 11:41 Intake & Output 10/14/20 10/15/20 10/16/20 06:59 06:59 06:59 Intake Total 2440 2340 250 Output Total 50 Balance 2390 2340 250 Weight 116.6 kg 115.4 kg Results Laboratory Results: 10/15/20 06:22 10/15/20 06:22 10/15/20 10/15/20 06:22 06:22 WBC 8.6 RBC 3.43 L Hgb 10.0 L Hct 30.5 L MCV 89 MCH 29.1 MCHC 32.8 RDW 15.2 H Plt Count 381 Sodium 135.8 L Potassium 3.8 Chloride 103 Carbon Dioxide 29 Anion Gap 4 L BUN 6 L Creatinine 0.77 Est GFR ( Amer) > 60 Glucose 142 H Calcium 8.6 10/13/20 06:36 Arm - Right Side Abscess Gram Stain - Final 10/13/20 06:36 Arm - Right Side Abscess Wound Culture - Final Mrsa (Meth Resis Staph Aureus) Prevotella Species Anaerococcus (Peptostrep) Sp. Impressions: Upper Extremity CT 10/12/20 19:46 IMPRESSION: Poorly visualized apparent intramuscular abscess in the anterior aspect of the patient's right biceps musculature with likely adjacent cellulitis. Assessment & Plan - Diagnosis (1) Abscess of right arm Is this a current diagnosis for this admission?: Yes - Time Anticipated Discharge Disposition: unknown Anticipated Discharge Timeframe: unknown - Plan Summary Plan Summary: 39-year-old male status post incision and drainage of a large right upper extre mity abscess, consistent with septic thrombophlebitis. Patient is doing reasonably well today. He complains of pain. I have changed his dressing at the bedside today. The wound appears clean, without signs of overt purulence. Continue with antibiotics. Continue with dressing changes.
[2020-10-15 14:56] VITALS: BP 129/79
--- NOTE | 2020-10-15 15:01 | PDOC DISCHARGE SUMMARY ---
Impression - Admit/DC Date/PCP Admission Date/Primary Care Provider: 10/13/20 01:06 Discharge Date: 10/15/20 - Discharge Diagnosis (1) Myofascitis Is this a current diagnosis for this admission?: Yes (2) Abscess of right arm Is this a current diagnosis for this admission?: Yes (3) Cellulitis Is this a current diagnosis for this admission?: Yes (4) IV drug abuse Is this a current diagnosis for this admission?: Yes - Additional Information Resuscitation Status: Full Code Discharge Diet: Regular Discharge Activity: Activity As Tolerated Referrals: [facility] [Provider Group] Wound Care [Provider Group] [facility] [Outside] - 10/15/20 12:30 pm (10/15 @ 1230 A MESSAGE WAS LEFT FOR CLINIC TO CALL PATIENT WITH A HOSPITAL FOLLOW UP APPT. DATE/TIME) POOJA IRIZARRY MD [ACTIVE STAFF] - 10/22/20 3:15 pm Prescriptions: Amoxicillin/Potassium Clav [Augmentin 875-125 Tablet] 1 tab PO Q12 9 Days #18 tablet Oxycodone HCl/Acetaminophen [Percocet 5-325 mg Tablet] 1 tab PO BIDP PRN #14 tablet PRN Reason: Doxycycline Hyclate [Vibramycin 100 mg Tablet] 100 mg PO Q12 9 Days #18 tablet Home Medications: Amoxicillin/Potassium Clav [Augmentin 875-125 Tablet] 1 tab PO Q12 9 Days #18 tablet 10/15/20 Doxycycline Hyclate [Vibramycin 100 mg Tablet] 100 mg PO Q12 9 Days #18 tablet 10/15/20 Oxycodone HCl/Acetaminophen [Percocet 5-325 mg Tablet] 1 tab PO BIDP PRN #14 tablet 10/15/20 History of Present Illiness History of Present Illness: According to admitting provider: ENRIQUETA GREY is a 39 year old male with a history of IV heroin abuse who is head swelling in his right upper extremity for a few days. It has gotten red and tender and has had an area of drainage. He is febrile. CT confirms that he has a large abscess in the right upper extremity. Surgery was consulted and is going to the OR in the morning for drainage. Our service was consulted for admission and antibiotic management. Hospital Course Hospital Course: 10/13/2020 We will obtain cultures from the abscess at that time. He said he u ses anywhere from half a gram to a gram of heroin a day. We will put him on some methadone to avoid withdrawal while he is in the hospital. 10/14/2020 Patient underwent surgery yesterday which revealed abscess, myositis and fasciitis. Post drainage and debridement were performed. Currently area is dressed. Surgery to manage surgical wound. Continue pain control with IV medications as needed. Patient counseled on cessation of polysubstance abuse. No evidence of withdrawal at the moment. We will continue to monitor closely. Blood culture is negative at 24 hours. Deep tissue culture from surgery is growing gram-positive cocci. Will await identification. Leukocytosis is resolved. Continue vancomycin. Check vancomycin troughs. Monitor renal function. 10/15/2020 Patient surgical wound was evaluated by the surgeon Dr. Case today and the surgical wound looks good and clean without any evidence of purulence. I did discuss with Dr. Case who has cleared patient for discharge but advised that he will need somebody to help him out with his damp to dry dressings on his right arm. I have coordinated with exercise planner KETURAH today who was also coordinated with the wound clinic as well as his Medicaid bilingual social worker has informed me that patient will be able to follow-up with the wound clinic for his daily wound dressings starting tomorrow. I also had conversation with patient and he knows how to do wound dressing and actually reiterated it back to me properly. Advised him to get somebody to help him out with a dressing during the weekends. He will be following up with the surgeon in about 2 weeks to get the wound reevaluated. Discharge him with pain medication as well as Doxycycline and Augmentin to cover his abscess which grew MRSA, Prevotella and Anerococcus. Physical Exam Vital Signs: Temp Pulse Resp BP Pulse Ox 98.3 F 62 18 120/67 97 10/15/20 11:41 10/15/20 11:41 10/15/20 11:41 10/15/20 11:41 10/15/20 11:41 Intake & Output 10/14/20 10/15/20 10/16/20 06:59 06:59 06:59 Intake Total 2440 2340 250 Output Total 50 Balance 2390 2340 250 Weight 116.6 kg 115.4 kg General appearance: PRESENT: no acute distress, cooperative Neck exam: ABSENT: JVD Respiratory exam: PRESENT: clear to auscultation marian, unlabored. ABSENT: wheezes Cardiovascular exam: PRESENT: RRR, +S1, +S2. ABSENT: tachycardia GI/Abdominal exam: PRESENT: soft. ABSENT: rebound, rigid, tenderness Extremities exam: PRESENT: other - right arm in clean nonsaturated dressing Neurological exam: PRESENT: alert, awake, oriented to person, oriented to place, oriented to time, oriented to situation Psychiatric exam: ABSENT: agitated, anxious Results Laboratory Results: WBC 8.6 10^3/uL (4.0-10.5) 10/15/20 06:22 RBC 3.43 10^6/uL (4.35-5.55) L 10/15/20 06:22 Hgb 10.0 g/dL (13.5-17.0) L 10/15/20 06:22 Hct 30.5 % (37.9-51.0) L 10/15/20 06:22 MCV 89 fl (80-97) 10/15/20 06:22 MCH 29.1 pg (27.0-33.4) 10/15/20 06:22 MCHC 32.8 g/dL (32.0-36.0) 10/15/20 06:22 RDW 15.2 % (11.5-14.0) H 10/15/20 06:22 Plt Count 381 10^3/uL (150-450) 10/15/20 06:22 Lymph % (Auto) 17.2 % (13-45) 10/12/20 20:08 [place] % (Auto) 17.6 % (3-13) H 10/12/20 20:08 Eos % (Auto) 0.3 % (0-6) 10/12/20 20:08 Baso % (Auto) 0.6 % (0-2) 10/12/20 20:08 Absolute Neuts (auto) 9.2 10^3/uL (1.7-8.2) H 10/12/20 20:08 Absolute Lymphs (auto) 2.5 10^3/uL (0.5-4.7) 10/12/20 20:08 Absolute Monos (auto) 2.5 10^3/uL (0.1-1.4) H 10/12/20 20:08 Absolute Eos (auto) 0.0 10^3/uL (0.0-0.6) 10/12/20 20:08 Absolute Basos (auto) 0.1 10^3/uL (0.0-0.2) 10/12/20 20:08 Seg Neutrophils % 64.3 % (42-78) 10/12/20 20:08 PT 14.2 SEC (11.4-15.4) 10/12/20 20:08 INR 1.08 10/12/20 20:08 Sodium 135.8 mmol/L (137-145) L 10/15/20 06:22 Potassium 3.8 mmol/L (3.6-5.0) 10/15/20 06:22 Chloride 103 mmol/L (98-107) 10/15/20 06:22 Carbon Dioxide 29 mmol/L (22-30) 10/15/20 06:22 Anion Gap 4 (5-19) L 10/15/20 06:22 BUN 6 mg/dL (7-20) L 10/15/20 06:22 Creatinine 0.77 mg/dL (0.52-1.25) 10/15/20 06:22 Est GFR ( Amer) > 60 (>60) 10/15/20 06:22 Est GFR (MDRD) Non-Af > 60 (>60) 10/15/20 06:22 Glucose 142 mg/dL (75-110) H 10/15/20 06:22 Lactic Acid 1.3 mmol/L (0.7-2.1) 10/12/20 20:08 Calcium 8.6 mg/dL (8.4-10.2) 10/15/20 06:22 Total Bilirubin 1.0 mg/dL (0.2-1.3) 10/12/20 20:08 Direct Bilirubin 0.4 mg/dL (0.0-0.4) 10/12/20 20:08 Neonat Total Bilirubin Not Reportable 10/12/20 20:08 Neonat Direct Bilirubin Not Reportable 10/12/20 20:08 Neonat Indirect Bili Not Reportable 10/12/20 20:08 AST 106 U/L (17-59) H 10/12/20 20:08 ALT 47 U/L (<50) 10/12/20 20:08 Alkaline Phosphatase 170 U/L (38-126) H 10/12/20 20:08 Total Protein 6.7 g/dL (6.3-8.2) 10/12/20 20:08 Albumin 3.1 g/dL (3.5-5.0) L 10/12/20 20:08 Time Trough Drawn 1348 10/14/20 13:48 Vancomycin Trough 14.8 ug/mL (5.0-20.0) 10/14/20 13:48 Influenza A (RT-PCR) NEGATIVE (NEGATIVE) 10/13/20 05:02 Influenza B (RT-PCR) NEGATIVE (NEGATIVE) 10/13/20 05:02 RSV (RT-PCR) NEGATIVE (NEGATIVE) 10/13/20 05:02 SARS-CoV-2 Rap RNA(RT-PCR) NEGATIVE (NEGATIVE) 10/13/20 05:02 Impressions: Upper Extremity CT 10/12/20 19:46 IMPRESSION: Poorly visualized apparent intramuscular abscess in the anterior aspect of the patient's right biceps musculature with likely adjacent cellulitis. Plan Time Spent: Greater than 30 Minutes Stroke Is this a Stroke Patient?: No Acute Heart Failure Is this a Heart Failure Patient?: No
== END 2020-10-15 15:41 | disposition home or self-care (01) | DRG 581 ==
LOC: ER 18:05 → INTOOBSV 10-13 01:06 → EH 10-13 01:06 → OBSVTOIN 10-13 01:06 → 4S 10-13 10:11
PROVIDERS: ADMIT Family Medicine; ATTEND Internal Medicine
PROC: 0KB70ZZ Excision of Right Upper Arm Muscle, Open Approach (ICD-10-PCS; principal; 2020-10-13 06:15)
DX: L02.413 Cutaneous abscess of right upper limb (principal); B95.62 Methicillin resistant Staphylococcus aureus infection as the cause of diseases classified elsewhere; M72.9 Fibroblastic disorder, unspecified; M60.9 Myositis, unspecified; F19.10 Other psychoactive substance abuse, uncomplicated; F17.200 Nicotine dependence, unspecified, uncomplicated; J44.9 Chronic obstructive pulmonary disease, unspecified; E66.01 Morbid (severe) obesity due to excess calories; L03.113 Cellulitis of right upper limb; Z11.59 Encounter for screening for other viral diseases; Z71.51 Drug abuse counseling and surveillance of drug abuser; Z88.2 Allergy status to sulfonamides
CPT/HCPCS: 01710; 36415; 80048; 80053; 80202; 83605; 85025; 85027; 85610; 87040; 87070; 87075; 87077; 87186; 87205; 93005; 93010; 96365; 96366; 96367; 99140; 99285; 0241U; C9803; J0690; J0696; J1100; J1885; J2250; J2370; J2405; J2704; J3010; J3370; J3480; J3490; J7060